=== PATIENT | female | born 1955 | race Caucasian/White ===

== ENCOUNTER 2020-03-21 06:11 | Outpatient (REF) | payer OTHER, SELFPAY ==
[2020-03-21 11:13] LABS: MANUAL DIFF FLAG NO
[2020-03-21 11:22] LABS: Glucose Urine UA NEG (NEG); Leukocyte Esterase Urine 1+ (NEG); Nitrite Urine NEG (NEG); Specific Gravity - Urine 1.025 (1.005-1.025); Urine Blood 3+ (NEG); Urine Ketones NEG (NEG); Urine Protein NEG (NEG-TRACE)
[2020-03-21 11:25] LABS: Appearance Urine CLEAR; Color Urine YELLOW
[2020-03-21 11:26] LABS: Basophils Absolute Auto 0.1 X10*3/uL (0.0-0.2); Basophils Percent Auto 0.9 % (0-2); Eosinophils Absolute Auto 0.6 X10*3/uL (0.0-0.4); Eosinophils Percent Auto 8.3 % (0-4); Hematocrit 42.5 % (37-47); Hemoglobin 13.6 g/dl (12.0-16.0); Imm Gran Abs Auto 0.02 X10*3/uL (0.00-0.03); Imm Gran Pct Auto 0.3 % (0.0-0.4); Lymphocytes Absolute Auto 1.8 X10*3/uL (1.2-4.9); Lymphocytes Percent Auto 26.9 % (20-40); Mean Corpuscular Hemoglobin 29.7 pg (27.0-33.0); Mean Corpuscular Volume 92.8 fL (80-98); Mean Platelet Volume 11.2 fL (9.4-12.3); Monocytes Absolute Auto 0.5 X10*3/uL (0.1-1.2); Monocytes Percent Auto 7.6 % (2-11); Neutrophils Absolute Auto 3.8 X10*3/uL (2.0-8.3); Platelet Count 263 X10*3/uL (160-400); Red Blood Count 4.58 X10*6/uL (4.20-5.50); Red Cell Distribution Width 12.7 % (11.0-16.0); White Blood Count 6.9 X10*3/uL (4.8-10.8)
[2020-03-21 11:51] LABS: Alanine Aminotransferase 20 U/L (0-31); Alkaline Phosphatase 84 U/L (39-117); Anion Gap 13 (12-20); Aspartate Amino Transferase 18 U/L (5-31); Bilirubin Total 0.3 mg/dL (0.0-1.0); Blood Urea Nitrogen 20 mg/dL (9-16); Carbon Dioxide 28 mmol/L (22-29); Chloride 103 mmol/L (96-108); Cholesterol 247 mg/dL; Estimated Glomerular Filt Rate 55; Glucose Fasting 113 mg/dL (60-99); HDL Cholesterol 51 mg/dL; LDL Cholesterol Calculated 155 mg/dl; Potassium 4.2 mmol/l (3.3-5.1); Sodium 140 mmol/L (135-145); Triglycerides 207 mg/dL
[2020-03-21 12:03] LABS: Free T4 (Free Thyroxine) 0.87 ng/dL (0.71-1.85); Thyroid Stimulating Hormone 7.77 uIU/mL (0.32-4.0)
[2020-03-21 12:19] LABS: RBC Urine 0-2 /HPF (0); Renal Epithelial Cells Urine TRACE /LPF; Squamous Epithelial Cell Urine TRACE /LPF
== END 2020-03-21 06:12 | disposition home or self-care (01) ==
LOC: HO.HMGCLDS 06:11
PROVIDERS: PCP Internal Medicine; Visit Provider Internal Medicine
DX: E03.9 Hypothyroidism, unspecified (principal); I10 Essential (primary) hypertension; E78.00 Pure hypercholesterolemia, unspecified
CPT/HCPCS: 36415; 80053; 80061; 81001; 84439; 84443; 85025

== ENCOUNTER 2020-07-08 06:44 | Outpatient (REF) | payer OTHER, SELFPAY ==
[2020-07-08 11:40] LABS: Cholesterol 229 mg/dL; HDL Cholesterol 47 mg/dL; LDL Cholesterol Calculated 134 mg/dl; Triglycerides 244 mg/dL
[2020-07-08 12:08] LABS: Free T4 (Free Thyroxine) 0.91 ng/dL (0.71-1.85)
== END 2020-07-08 06:45 | disposition home or self-care (01) ==
LOC: HO.HMGCLDS 06:44
PROVIDERS: PCP Internal Medicine; Visit Provider Internal Medicine
DX: E78.00 Pure hypercholesterolemia, unspecified (principal); E03.9 Hypothyroidism, unspecified
CPT/HCPCS: 36415; 80061; 84439; 84443

== ENCOUNTER 2020-10-03 09:25 | Outpatient (REF) | payer OTHER, SELFPAY ==
[2020-10-03 12:04] LABS: Free T4 (Free Thyroxine) 1.01 ng/dL (0.71-1.85); Thyroid Stimulating Hormone 1.88 uIU/mL (0.32-4.0)
== END 2020-10-03 09:26 | disposition home or self-care (01) ==
LOC: HO.HMGCLDS 09:25
PROVIDERS: PCP Internal Medicine; Visit Provider Internal Medicine
DX: E03.9 Hypothyroidism, unspecified (principal)
CPT/HCPCS: 36415; 84439; 84443

== ENCOUNTER 2020-10-22 07:34 | Outpatient (REF) | payer OTHER, SELFPAY ==
--- NOTE | ~2020-10-22 | MM_ITS ---
EXAMINATION: MM SCREENING DIGITAL BREAST TOMOSYNTHESIS, BILATERAL CLINICAL INFORMATION: Screening. Asymptomatic. The lifetime risk of breast cancer based on the Tyrer-Cuzick Model is 4%. COMPARISON: Mammography: 10/17/2019, 09/16/2017, 06/19/2016 TECHNIQUE: Digital breast tomosynthesis is performed in both the craniocaudal and mediolateral oblique views along with computer-aided detection (CAD). Synthesized 2D images are generated from the tomosynthesis. Additional exaggerated left CC view is provided. FINDINGS: There are scattered areas of fibroglandular density (ACR BI-RADS breast composition Category b). There are no significant masses, abnormal calcifications, or other abnormalities. Parenchymal pattern is similar to prior studies. No significant changes. MM/MM tomosynthesis screening BI IMPRESSION: No mammographic evidence of malignancy. ASSESSMENT: BI-RADS 1: Negative RECOMMENDATION: Routine annual mammography screening. This patient's information was entered into a reminder system with a target due date for their next mammogram.
== END 2020-10-22 07:35 | disposition home or self-care (01) ==
LOC: HO.MAMMO 07:34
PROVIDERS: PCP Internal Medicine; Visit Provider Internal Medicine
DX: Z12.31 Encounter for screening mammogram for malignant neoplasm of breast (principal)
CPT/HCPCS: 77063; 77067

== ENCOUNTER 2021-10-23 08:02 | Outpatient (REF) | payer OTHER, SELFPAY ==
--- NOTE | ~2021-10-23 | MM_ITS ---
EXAMINATION: MM SCREENING DIGITAL BREAST TOMOSYNTHESIS, BILATERAL CLINICAL INFORMATION: Screening. Asymptomatic. The lifetime risk of breast cancer based on the Tyrer-Cuzick Model is 4%. COMPARISON: Mammography: 10/22/2020, 10/17/2019, 09/16/2017 TECHNIQUE: Digital breast tomosynthesis is performed in both the craniocaudal and mediolateral oblique views along with computer-aided detection (CAD). Synthesized 2D images are generated from the tomosynthesis. FINDINGS: There are scattered areas of fibroglandular density (ACR BI-RADS breast composition Category b). There are no significant masses, abnormal calcifications, or other abnormalities. Parenchymal pattern is similar to prior studies. There is no developing density or architectural abnormality. The axilla and skin contours are unremarkable. No significant changes. MM/MM tomosynthesis screening BI IMPRESSION: No mammographic evidence of malignancy. ASSESSMENT: BI-RADS 1: Negative RECOMMENDATION: Routine annual mammography screening. This patient's information was entered into a reminder system with a target due date for their next mammogram.
== END 2021-10-23 08:03 | disposition home or self-care (01) ==
LOC: HO.MAMMO 08:02
PROVIDERS: PCP Internal Medicine; Visit Provider Internal Medicine
DX: Z12.31 Encounter for screening mammogram for malignant neoplasm of breast (principal)
CPT/HCPCS: 77063; 77067

== ENCOUNTER 2021-11-05 08:24 | Outpatient (REF) | payer OTHER, SELFPAY ==
[2021-11-05 11:10] LABS: MANUAL DIFF FLAG NO
[2021-11-05 11:35] LABS: Basophils Absolute Auto 0.1 X10*3/uL (0.0-0.2); Basophils Percent Auto 0.9 % (0-2); Eosinophils Absolute Auto 0.4 X10*3/uL (0.0-0.4); Eosinophils Percent Auto 6.6 % (0-4); Hemoglobin 13.4 g/dl (12.0-16.0); Imm Gran Abs Auto 0.02 X10*3/uL (0.00-0.03); Imm Gran Pct Auto 0.4 % (0.0-0.4); Lymphocytes Absolute Auto 1.4 X10*3/uL (1.2-4.9); Lymphocytes Percent Auto 25.2 % (20-40); Mean Corpuscular HGB Conc 32.7 g/dl (31.0-35.0); Mean Corpuscular Hemoglobin 29.3 pg (27.0-33.0); Mean Corpuscular Volume 89.5 fL (80.0-98.0); Monocytes Absolute Auto 0.6 X10*3/uL (0.1-1.2); Monocytes Percent Auto 9.8 % (2-11); Neutrophils Absolute Auto 3.2 x10*3/uL (2.0-8.3); Neutrophils Percent Auto 57.1 % (45-73); Platelet Count 250 X10*3/uL (160-400); Red Blood Count 4.58 X10*6/uL (4.20-5.50); Red Cell Distribution Width 12.6 % (11.0-16.0); White Blood Count 5.6 X10*3/uL (4.8-10.8)
[2021-11-05 11:38] LABS: Alanine Aminotransferase 24 U/L (0-31); Alkaline Phosphatase 79 U/L (39-117); Anion Gap 10 (12-20); Aspartate Amino Transferase 20 U/L (5-31); Bilirubin Total 0.5 mg/dL (0.0-1.0); Blood Urea Nitrogen 19 mg/dL (9-16); Calcium 9.1 mg/dL (8.4-10.2); Carbon Dioxide 28 mmol/L (22-29); Chloride 106 mmol/L (96-108); Cholesterol 225 mg/dL; Estimated Glomerular Filt Rate 58; Glucose Random 100 mg/dL (60-115); HDL Cholesterol 42 mg/dL; LDL Cholesterol Calculated 150 mg/dl; Sodium 140 mmol/L (135-145); Total Protein 6.9 g/dL (6.5-8.0); Triglycerides 167 mg/dL
[2021-11-05 12:04] LABS: Free T4 (Free Thyroxine) 1.15 ng/dL (0.71-1.85); Thyroid Stimulating Hormone 1.96 uIU/mL (0.32-4.0)
[2021-11-05 12:20] LABS: Vitamin B12 363 pg/mL (200-900)
[2021-11-07 20:47] LABS: Anti Nuclear Antibody Screen NEGATIVE (NEGATIVE)
== END 2021-11-05 08:25 | disposition home or self-care (01) ==
LOC: HO.HMGCLDS 08:24
PROVIDERS: Visit Provider Internal Medicine
DX: Z00.00 Encounter for general adult medical examination without abnormal findings (principal); M25.50 Pain in unspecified joint
CPT/HCPCS: 36415; 80053; 80061; 82607; 84439; 84443; 85025; 86038; 86039; 86140

== ENCOUNTER 2022-04-16 07:49 | Outpatient (REF) | payer OTHER, SELFPAY ==
[2022-04-16 12:03] LABS: Cholesterol 233 mg/dL; HDL Cholesterol 44 mg/dL; LDL Cholesterol Calculated 146 mg/dl; Triglycerides 217 mg/dL
== END 2022-04-16 07:50 | disposition home or self-care (01) ==
LOC: HO.HMGCLDS 07:49
PROVIDERS: PCP Internal Medicine; Visit Provider Internal Medicine
DX: E78.00 Pure hypercholesterolemia, unspecified (principal)
CPT/HCPCS: 36415; 80061

== ENCOUNTER 2022-07-20 14:24 | Outpatient (REF) | payer OTHER, SELFPAY ==
--- NOTE | ~2022-07-20 | XR_ITS ---
EXAMINATION: XR KNEE, LEFT CLINICAL INFORMATION: Pain COMPARISON: None available. TECHNIQUE: Four views of the left knee. FINDINGS: No acute fracture or dislocation. Moderate narrowing of the lateral tibiofemoral compartment and mild to moderate narrowing of the patellofemoral compartment with tricompartmental osteophytes. Small suprapatellar effusion. XR/XR knee LT 3V IMPRESSION: Moderate osteoarthritis of the left knee. Small suprapatellar effusion.
--- NOTE | ~2022-07-20 | US_ITS ---
EXAMINATION: US VENOUS ULTRASOUND WITH DOPPLER LOWER EXTREMITY, LEFT CLINICAL INFORMATION: Left calf pain COMPARISON: None available. TECHNIQUE: Ultrasound of the deep veins is performed from the hip to the calf with compression sonography and color and pulse Doppler assessment. Spectral analysis with color-flow imaging is performed. FINDINGS: There is normal venous compression and respiratory variation and augmented flow. The visualized common femoral vein, superficial femoral vein, profunda femoral vein, popliteal vein, and the trifurcation region shows no evidence of deep venous thrombosis. There is no significant popliteal fossa cyst. US/US venous duplex LE LT IMPRESSION: No DVT demonstrated in the left lower extremity.
== END 2022-07-20 14:25 | disposition home or self-care (01) ==
LOC: HO.US 14:24
PROVIDERS: PCP Internal Medicine; Visit Provider Internal Medicine
DX: M79.662 Pain in left lower leg (principal); M25.562 Pain in left knee
CPT/HCPCS: 73562; 93971

== ENCOUNTER 2022-08-20 07:06 | Outpatient (REF) | payer OTHER, SELFPAY ==
--- NOTE | ~2022-08-20 | XR_ITS ---
EXAMINATION: XR FOOT, RIGHT CLINICAL INFORMATION: Pain. COMPARISON: None available. TECHNIQUE: AP, lateral, and oblique views of the right foot. FINDINGS: Bony alignment and mineralization are normal. No fracture, dislocation or right ankle joint effusion is seen. Boehler's angle is normal. There is mild bunion formation of the first metatarsal head. No focal soft tissue swelling, gas or foreign body is seen. XR/XR foot LT min 3V IMPRESSION: 1. No fracture, dislocation or right ankle joint effusion is seen. 2. There is mild bunion formation. EXAMINATION: XR FOOT, LEFT CLINICAL INFORMATION: Pain. COMPARISON: None available. TECHNIQUE: AP, lateral, and oblique views of the left foot. FINDINGS: Bony mineralization is normal. There is a metatarsus adductus and hallux valgus configuration. There is moderate bunion formation of the first metatarsal head. There is mild osteoarthritic change of the first metatarsophalangeal joint. There is degenerative change of the second tarsometatarsal joint. No fracture, dislocation or left ankle joint effusion is seen. Boehler's angle is normal. There is no calcaneal spur. No focal soft tissue swelling, gas or foreign body is seen. IMPRESSION: 1. There is multi-level degenerative change of the left foot, as detailed. 2. No fracture, dislocation or left ankle joint effusion is seen. 3. There is moderate bunion formation of the left first metatarsal head.
--- NOTE | ~2022-08-20 | XR_ITS ---
EXAMINATION: XR FOOT, RIGHT CLINICAL INFORMATION: Pain. COMPARISON: None available. TECHNIQUE: AP, lateral, and oblique views of the right foot. FINDINGS: Bony alignment and mineralization are normal. No fracture, dislocation or right ankle joint effusion is seen. Boehler's angle is normal. There is mild bunion formation of the first metatarsal head. No focal soft tissue swelling, gas or foreign body is seen. XR/XR foot RT min 3V IMPRESSION: 1. No fracture, dislocation or right ankle joint effusion is seen. 2. There is mild bunion formation. EXAMINATION: XR FOOT, LEFT CLINICAL INFORMATION: Pain. COMPARISON: None available. TECHNIQUE: AP, lateral, and oblique views of the left foot. FINDINGS: Bony mineralization is normal. There is a metatarsus adductus and hallux valgus configuration. There is moderate bunion formation of the first metatarsal head. There is mild osteoarthritic change of the first metatarsophalangeal joint. There is degenerative change of the second tarsometatarsal joint. No fracture, dislocation or left ankle joint effusion is seen. Boehler's angle is normal. There is no calcaneal spur. No focal soft tissue swelling, gas or foreign body is seen. IMPRESSION: 1. There is multi-level degenerative change of the left foot, as detailed. 2. No fracture, dislocation or left ankle joint effusion is seen. 3. There is moderate bunion formation of the left first metatarsal head.
[2022-08-20 07:39] LABS: MANUAL DIFF FLAG NO
[2022-08-20 08:27] LABS: Basophils Absolute Auto 0.1 X10*3/uL (0.0-0.2); Basophils Percent Auto 1.4 % (0-2); Eosinophils Absolute Auto 0.5 X10*3/uL (0.0-0.4); Eosinophils Percent Auto 7.6 % (0-4); Hematocrit 42.8 % (37.0-47.0); Imm Gran Abs Auto 0.02 X10*3/uL (0.00-0.03); Imm Gran Pct Auto 0.3 % (0.0-0.4); Lymphocytes Absolute Auto 1.7 X10*3/uL (1.2-4.9); Lymphocytes Percent Auto 25.6 % (20-40); Mean Corpuscular HGB Conc 32.7 g/dl (31.0-35.0); Mean Corpuscular Hemoglobin 29.6 pg (27.0-33.0); Mean Corpuscular Volume 90.5 fL (80.0-98.0); Mean Platelet Volume 10.8 fL (9.4-12.3); Monocytes Absolute Auto 0.6 X10*3/uL (0.1-1.2); Monocytes Percent Auto 8.5 % (2-11); Neutrophils Absolute Auto 3.7 x10*3/uL (2.0-8.3); Neutrophils Percent Auto 56.6 % (45-73); Platelet Count 265 X10*3/uL (160-400); Red Blood Count 4.73 X10*6/uL (4.20-5.50); White Blood Count 6.5 X10*3/uL (4.8-10.8)
[2022-08-20 09:11] LABS: Alanine Aminotransferase 24 U/L (0-31); Albumin Level 4.1 g/dL (3.5-5.0); Alkaline Phosphatase 87 U/L (39-117); Anion Gap 10 (12-20); Aspartate Amino Transferase 20 U/L (5-31); Bilirubin Total 0.4 mg/dL (0.0-1.0); Blood Urea Nitrogen 21 mg/dL (9-16); Calcium 9.5 mg/dL (8.4-10.2); Carbon Dioxide 28 mmol/L (22-29); Chloride 106 mmol/L (96-108); Cholesterol 251 mg/dL; Estimated Glomerular Filt Rate 56; Glucose Fasting 116 mg/dL (60-99); HDL Cholesterol 42 mg/dL; LDL Cholesterol Calculated 170 mg/dl; Potassium 4.4 mmol/L (3.3-5.1); Sodium 140 mmol/L (135-145); Total Protein 6.9 g/dL (6.5-8.0); Triglycerides 196 mg/dL
[2022-08-20 09:31] LABS: Free T4 (Free Thyroxine) 1.04 ng/dL (0.71-1.85); Thyroid Stimulating Hormone 1.86 uIU/mL (0.32-4.0)
== END 2022-08-20 07:07 | disposition home or self-care (01) ==
LOC: HO.LAB 07:06
PROVIDERS: PCP Internal Medicine; Visit Provider Internal Medicine
DX: M79.672 Pain in left foot (principal); E78.00 Pure hypercholesterolemia, unspecified; E03.9 Hypothyroidism, unspecified; M21.612 Bunion of left foot; M21.611 Bunion of right foot
CPT/HCPCS: 36415; 73630; 80053; 80061; 84439; 84443; 85025

== ENCOUNTER 2022-10-29 07:24 | Outpatient (REF) | payer OTHER, SELFPAY ==
--- NOTE | ~2022-10-29 | MM_ITS ---
EXAMINATION: MM SCREENING DIGITAL BREAST TOMOSYNTHESIS, BILATERAL CLINICAL INFORMATION: Screening. Asymptomatic. The lifetime risk of breast cancer based on the Tyrer-Cuzick Model is 3.2%. COMPARISON: Mammography: This study is compared with prior exams dating back to 2018. TECHNIQUE: Digital breast tomosynthesis is performed in both the craniocaudal and mediolateral oblique views along with computer-aided detection (CAD). Synthesized 2D images are generated from the tomosynthesis. FINDINGS: There are scattered areas of fibroglandular density (ACR BI-RADS breast composition Category b). There are no significant masses, abnormal calcifications, or other abnormalities. Few, benign calcifications are present in each breast. MM/MM tomosynthesis screening BI IMPRESSION: No mammographic evidence of malignancy. ASSESSMENT: BI-RADS BI-RADS 2 - Benign Findings RECOMMENDATION: Routine annual mammography screening. 1 year F/U This examination should not preclude the clinical evaluation of a suspicious palpable abnormality. This patient's information was entered into a reminder system with a target due date for their next mammogram.
== END 2022-10-29 07:25 | disposition home or self-care (01) ==
LOC: HO.MAMMO 07:24
PROVIDERS: PCP Internal Medicine; Visit Provider Internal Medicine
DX: Z12.31 Encounter for screening mammogram for malignant neoplasm of breast (principal)
CPT/HCPCS: 77063; 77067

== ENCOUNTER → 2022-10-29 07:45 | Outpatient (BNV) | payer OTHER, SELFPAY | PROVIDERS: PCP Internal Medicine; Visit Provider Radiology Diagnostic Radiology | DX: Z12.31 Encounter for screening mammogram for malignant neoplasm of breast (principal) | CPT/HCPCS: 77063; 77067 ==

== ENCOUNTER 2023-02-25 06:49 | Outpatient (REF) | payer OTHER, SELFPAY ==
[2023-02-25 11:43] LABS: Cholesterol 261 mg/dL (<200); HDL Cholesterol 45 mg/dL (>40); LDL Cholesterol Calculated 165 mg/dL (<100); Triglycerides 256 mg/dL (<150)
== END 2023-02-25 06:50 | disposition home or self-care (01) ==
LOC: HO.HMGCLDS 06:49
PROVIDERS: PCP Internal Medicine; Visit Provider Internal Medicine
DX: E78.00 Pure hypercholesterolemia, unspecified (principal)
CPT/HCPCS: 36415; 80061

== ENCOUNTER 2023-11-11 07:27 | Outpatient (REF) | payer OTHER, SELFPAY ==
--- NOTE | ~2023-11-11 | MM_ITS ---
EXAMINATION: MM SCREENING DIGITAL BREAST TOMOSYNTHESIS, BILATERAL CLINICAL INFORMATION: Screening. Asymptomatic. COMPARISON: Mammography: This study is compared with prior exams dating back to 2019. TECHNIQUE: Digital breast tomosynthesis is performed in both the craniocaudal and mediolateral oblique views along with computer-aided detection (CAD). Synthesized 2D images are generated from the tomosynthesis. FINDINGS: There are scattered areas of fibroglandular density (ACR BI-RADS breast composition Category b). There are no significant masses, abnormal calcifications, or other abnormalities. MM/MM tomosynthesis screening BI IMPRESSION: No mammographic evidence of malignancy. ASSESSMENT: BI-RADS BI-RADS 1 - Negative RECOMMENDATION: Routine annual mammography screening. 1 year F/U This examination should not preclude the clinical evaluation of a suspicious palpable abnormality. This patient's information was entered into a reminder system with a target due date for their next mammogram. Electronically signed by: Rody Leal MD 12/06/2023 02:31 AM EDT
== END 2023-11-11 07:28 | disposition home or self-care (01) ==
LOC: HO.MAMMO 07:27
PROVIDERS: PCP Internal Medicine; Visit Provider Internal Medicine
DX: Z12.31 Encounter for screening mammogram for malignant neoplasm of breast (principal)
CPT/HCPCS: 77063; 77067

== ENCOUNTER → 2023-11-11 08:00 | Outpatient (BNV) | payer OTHER, SELFPAY | PROVIDERS: PCP Internal Medicine; Visit Provider Radiology Diagnostic Radiology | DX: Z12.31 Encounter for screening mammogram for malignant neoplasm of breast (principal) | CPT/HCPCS: 77063; 77067 ==

== ENCOUNTER 2024-07-20 07:40 | Outpatient (REF) | payer OTHER, SELFPAY ==
--- OUTSIDE RECORDS SUMMARY | 2024-07-20 07:43 | XMS_ITS ---
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 . . patient recieved cortisone injection and is disabled until 11/09/22 11/04/2022 Active Lisinopril 10 MG 1 tablet Orally Once a day for 30 day(s) Active Metoprolol Succinate 50 MG 1 capsule Ora lly Once a day for 30 day(s) Active Levothyroxine Sodium 88 MCG 1 tablet in the morning on an empty stomach Orally Once a day for 30 day(s) Active Aspirin Active Nabumetone 750 MG 1 tablet Orally ONCE A DAY WITH FOOD for 30 day(s) Active Social History Tobacco Use: Social History Observation Description Date Details (start date - stop date) Never Smoker NA - NA Tobacco Use/Smoking Question Answer Notes Are you a: nonsmoker Additional Findings: Tobacco Non-User Current no n-smoker Alcohol Screen Question Answer Notes Did you have a drink containing alcohol in the p ast year? No Points 0 Interpretation Negative Tobacco use other than smoking: Question Answer Notes Are you an other tobacco user? No Vital Signs Height 4 ft 11 in in 02/24/2023 Weight 140 lbs 02/24/2023 BMI 28.27 kg/m2 02/24/2023 Encounters Encounter Location Date Provider Diagnosis [facility] [address] [place] [address] 02/24/2023 Randell Oquendo Pain in left foot M79.672 ; Primary osteoarthritis, left ankle and foot M19.072 and Hallux valgus (acquired), left foot M20.12 Assessments Encounter Date Diagnosis (ICD Code) Assessment Notes Treatment Notes Treatment Clinical Notes Section Notes 02/24/2023 Pain in left foot (ICD-10 - M79.672) 02/24/2023 Primary osteoarthritis, left ankle and foot (ICD-10 - M19.072) 02/24/2023 Hallux valgus (acquired), left foot (ICD-10 - M20.12) Plan Of Treatment Medication Medication Name Sig Start Date Stop Date Notes Nabumetone 750 MG 1 tablet Orally ONCE A DAY WITH FOOD for 30 day(s) Next Appt Details Follow Up: prn, Reason: Progress Notes * Polly VICTORIA CDOB:[birth year] (67 yo F)Acc No.[id number]:02/24/2023 Progress Note Patient:?Polly Victoria C Provider:?Randell Oquenod DPM :1955???Age:67 Y???Sex:Female D ate:02/24/2023 Address:[address] [place], [place] [id number] Pcp:Dejan Petit MD Subjective: * Chief Complaints: * ??? * HPI: ???Foot Pain:?Nature:?swelling, aching.?Location?Top, Midfoot, Rearfoot, Left .?Duration:?several months.?Onset/Cause:?unknown, denies trauma.?Course:?improved, at __25_ %.?Aggrevated:?any pressure, standing, walking.?Treatments:?rest, elevation, change in shoes, cortisone injection therapy--did not help; nabumetone qod has helped.?Quality/Severity?6, scale 1-10.? * ROS:?General/Constitutional:?Nausea?denies, denies.?Vomiting?denies, denies.?Hunger Thirst?denies, denies.?Loss appetite?denies, denies.?Chills?denies, denies.?Fatigue?denies, denies.?Fever?denies, denies.?Night Sweats denies, denies.?Unexplained weight loss?denies, denies.?Unexplained weight gain?denies.?Ophthalmologic:?Blurred vision?denies.?Red eye?denies.?HEENTM:?Dentures?denies, denies.?Dizziness?denies, denies.?Glasses/contacts?admits, denies.?Retinopathy?denies, denies.?Blurred/double vision?denies, denies.?TMJ?denies, denies.?Discharge/drainage?denies, denies.?Implants?denies, denies.?Sore throat?denies.?Dental implants?denies.?Hard of hearing ?denies, denies.?Difficulty chewing/swallowing/speaking?denies, denies.?Nose bleeds?denies, denies.?Sore mouth?denies, denies.?Swollen glands?denies.?Respiratory:?On Oxygen?denies, denies.?Pneumonia/pleurisy?denies, denies.?Bronchitis?denies, denies.?Emphysema?denies, denies.?Coughing?denies, denies.?Cough blood?denies, denies.?Shortness of breath?denies, denies.?Wheezing?denies, denies.?Cardiovascular:?Pacemaker?denies, denies.?MVP?denies, denies.?WPW?denies, denies.?CHF?denies, denies.?Heart attack?denies, denies.?Septal defect?denies, denies.?Rapid beat?denies, denies.?Chest pain ?denies, denies.?Atrial Fib.?denies, denies.?Murmur/Palpitations?denies, denies.?Gastrointestinal:?Hemorrhoids?denies, denies.?Stomach/Abdominal pain?denies, denies.?Dark blood stool?denies, denies.?Irritable bowel ?denies, denies.?Constipation?denies, denies.?Diarrhea?denies, denies.?Vomiting?denies.?Hematology:?Swelling?denies, denies.?Clots?denies.?Varicose Veins?denies.?Bruising?denies, denies.?Bleeding problem?denies, denies.?Genitourinary:?Blood urine?denies, denies.?Frequent/Painfu/urination/bladder control?denies, denies.?Kidney stones?denies, denies.?Infection (UTI)?denies, denies.?Nephropathy?denies, denies.?sex trans dis (STD)?denies.?Prostate?denies.?Musculoskeletal:?Hammertoes?denies, denies.?Bunions?admits, denies.?Scoliosis/kyphosis?denies.?Back Pain?admits.?Muscle Cramps/ Resting?denies.?Muscle cramps / walking?denies, denies.?Generalized aches and pains?admits, denies.?Weakness?denies, denies.?Integ.:?Batista?denies, denies.?Scars?denies, denies.?Corns/calluses?denies, denies.?Ingrown nails?denies, denies.?Painful nails?denies, denies.?Open Sores?denies.?Rashes?denies, denies.?Neurologic:?Difficulty sleeping?denies, denies.?Bipolar?denies.?Brain disorder?denies, denies.?Numbness?admits.?Balance trouble?denies, denies.?Confusion?denies, denies.?Fainting/blackouts?denies, denies.?Headache?denies.?Tingling?admits.?Tremors?denies, denies.? * Medical History:? * Surgical History:?right knee arthroscopy- anesthesia causing blood pressure to go low + [id number] * Hospitalization/Major Diagno stic Procedure:?Back Joint Injury- work related- no surgery -physical Therapy every other month 2014 * Family History:?Mother: dece ased, kidney/liver disease, diagnosed with Family history of arthritis, Unspecified essential hypertension, Other specified conditions influencing health status.?Father: , heart attack, diagnosed with Unspecified heart disease.? * Social History:?Drugs/Alcohol:?Drugs?Have you used drugs other than those for medical reasons in the past 12 months??No ?Alcohol Screen?Did you have a drink containing alcohol in the past year??No ?Points?0 ?Interpretation?Negative ???Miscellaneous:?Caffeine: yes, frequency:, 3-5 cups per day. ?Children: yes, 1. ?Exercise: yes, walking, bike riding. ?Marital status: . 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 * Medications:?TakingAspirin L evothyroxine Sodium 88 MCG Tablet 1 tablet in the morning on an empty stomach Orally Once a dayMetoprolol Succinate 50 MG Capsule ER 24 Hour Sprinkle 1 capsule Orally Once a dayLisinopril 10 MG Tablet 1 tablet Orally Once a dayWork Note . . . . patient recieved cortisone injection and is disabled until 11/09/22Nabumetone 750 MG Tablet 1 tablet Orally ONCE A DAY WITH FOODMedication List reviewed and reconciled with the patientTaking Aspirin Taking Levothyroxine Sodium 88 MCG Tablet 1 tablet in the morning on an empty stomach Orally Once a dayTaking Metoprolol Succinate 50 MG Capsule ER 24 Hour Sprinkle 1 capsule Orally Once a dayTaking Lisinopril 10 MG Tablet 1 tablet Orally Once a dayTaking Work Note . . . . patient recieved cortisone injection and is disabled until 11/09/22Taking Nabumetone 750 MG Tablet 1 tablet Orally ONCE A DAY WITH FOODMedication List reviewed and reconciled with the patient * Allergies:?Penicillin: rashy es[Allergies Verified] Objective: * Vitals:?Ht: 4 ft 11 in, Wt:1 40, BMI:28.27, Shoe size:4.5-5. * Examination: ???General Examination: ?GENERAL APPEARANCE:?pleasant, alert, well nourished, well developed, well hydrated, with good attention to hygene/body habitus, and in no acute distress.?ORIENTED:?person,place, and time.?Neurological: ?SENSORY:? Neurological exam demonstrates pop dorsum left midfoot --anjum 2nd mt-cun and mild pop left first mtpj hav; no pop of ankle.?TINEL'S COMPRESSION:?Negative tarsal tunnel, vonda pedis, and medial calcaneal nerves B/L.?BABINSKI REFLEX:?absent.?Neuroma Pain: ?PALPATION:?No interspace pain noted on palpation.?Vascular: ?DP PULSES:?2/, B/L.?PT PULSES:?2/4, B/L.?CAPILLARY FILL TIME:?3 secs. per digit, B/L.?SKIN TEMPERTURE GRADIENT OF THE LOWER EXTERMITIES:?warm to cool, proximal to distal, B/L.?HAIR GROWTH/TEXTURE/ELASTICITY/TURGOR:?normal, B/L.?PIGMENTATION:?normal, B/L.?EDEMA:? /4, Left, Ankle(s), Leg(s), foot.?TELANGECTASIA:?absent.?VARICOSITIES:?absent.?Dermatologic: ?SKIN FINDINGS:?Skin exam reveals normal texture, elasticity, and tugor. There are no masses. The interspaces are clear, B/L .?Orthopedic: ?MUSCLE STRENGTH:?5/5 all groups in a symmetrical fashion , B/L.?GAIT ABNORMALITY:?pronated, abducted, B/L.?BUNION:? Medially prominent 1st MPJ, LEFT, Lateral tracking 1st MPJ incompletely reducible.? Assessment: * Assessment: 1.?Pain in left foot - M79.6 72 (Primary)?2.?Primary osteoarthritis, left ankle and foot - M19.072?3.?Hallux valgus (acquired), left foot - M20.12? Plan: * Treatment: * Procedure Codes:? * Preventive Medicine:? ??Counseling:?Discussion:?-13: Office or other outpatient visit for the evaluation and management of an established patient, which required a medically appropriate history and/or examination and LOW level of DECISION MAKING for: 1 STABLE ACUTE UNCOMPLICATED PROBLEM, 2 OR MORE MINOR PROBLEMS, OR 1 STABLE CHRONIC PROBLEM, THAT POSE(S) A LOW RISK FOR MORBIDITY/MORTALITY. The visit on the day of the encounter encompassed interpreting the data and educating the patient as to the nature of their condition, treatment options available according to their individual PMH, meds, allergies, and overall health/living conditions, as well as any potential risks or complications that may occur from a failure to adhere to, and participate in, the recommended course of therapy. The discussion included a complete verbal, and/or written explanation of the examination results, any x-rays taken, the proposed diagnosis, and outline of the treatment plan. A schedule for future care needs was also explained. The patient verbalized an understanding of the instructions at this time and agreed to be an active participant in their treatment. If the patient should think of any questions or concerns after the visit, I have encouraged the patient to call the office--pt to conitnue with ice, topical and oral nsaid and altered lacing to shoes; pt to consider sx tx in future if she cotninues to have pain into snf.? * Follow Up:?prn * Images: * Sign off status: Completed true * Provider:?Randell Oquendo DPM Date:? 023 Generated for Printi ng/Faxing/eTransmitting on:?07/20/2024 07:43 AM EDT History and Physical Notes * HPI (History of Present Illness) Category Sub-Category Detail Notes Category Not es Foot Pain Aggrevated: any pressure, standing, walk ing Onset/Cause: unknown, denies abby ohara Course: improved, at __25_ % Duration: several months Nature: swelling, aching Treatments: rest, elevation, sandra nge in shoes, cortisone injection therapy--did not help; nabumetone qod has helped Quality/Severity 6, scale 1-10 Location Top, Midfoot, Rearfo ot, Left Examination Category Sub-Category Detail Notes Category Not es Neuroma Pain PALPATION: No interspace pain noted on palpation Neurological SENSORY: Neurological exa m demonstrates pop dorsum left midfoot --anjum 2nd mt-cun and mild pop left first mtpj hav; no pop of ankle BABINSKI REFLEX: absent TINEL'S COMPRESSION: Negative tarsal heather guero, vonda pedis, and medial calcaneal nerves B/L Dermatologic SKIN FINDINGS: Skin exam reveal s normal texture, elasticity, and tugor. There are no masses. The interspaces are clear, B/L Orthopedic GAIT ABNORMALITY: pronated, abducted, B/L BUNION: Medially prominent 1 st MPJ, LEFT, Lateral tracking 1st MPJ incompletely reducible MUSCLE STRENGTH: 5/5 all groups in a symmetrical fashion , B/L General Examination GENERAL APPEARANCE: pleasant , alert, well nourished, well developed, well hydrated, with good attention to hygene/body habitus, and in no acute distress ORIENTED: person,place, and ti me Vascular DP PULSES (B): 2/4, B/L PT PULSES (B): 2/4, B/L CAPILLARY FILL TIME: 3 secs. per digit, B/L TEMPERTURE GRADIENT (C): warm to cool, p roximal to distal, B/L TROPHIC CONDITION-TEXTURE/ELASTICITY/TURGOR/HAIR GROWTH (B): normal, B/L EDEMA (C): 1/4, Left, Ankle(s), Leg(s), foot TELANGECTASIA: absent VARICOSITIES: absent PIGMENTATION: normal, B/L
--- OUTSIDE RECORDS SUMMARY | 2024-07-20 07:43 | XMS_ITS | Data Portability ---
Author Organization [facility] Address [address] [place] [address] Assessment No assessment recorded. Plan of Treatment Reminders Order Date Submit Date Provider Last Modified By Organization Details Last Modified Time Details Appointments None recorded. Lab CMP, serum or plasma 2018 JEFF Not available 9 08:37:02 lipid panel, blood 2018 JEFF Not available 9 08:37:02 CBC 2018 019 JEFF Not available 9 08:37:02 TSH + free T4, serum 2018 019 JEFF Not available 9 08:37:02 Referral colonoscopy referral 2018 denisha Virgen Jr, MD, [address] [place] [address] [place], [address], 9 09:45:47 Procedures None recorded. Surgeries None recorded. Imaging None recorded. Medication Orders None recorded. Patient TargetsNo targets recorded. Patient Instructions Encounter Date Encounter Id Patient Instructions Last Modified By Organization Details Last Modified Time 2018 [id number] Work on weight loss antonella Not available 2018 15:44:15 Reason for Referral Colonoscopy Referral for Scr eening procedure Referring Physician: Nicole Zepeda, Internal Medicine, Encounter Date: 2018 Results Created Date Observation Date Name Description Value Unit Range Abnormal Flag Note LastModifiedBy Organization Detail LastModifiedTime Result Notes None recorded. Problems Name Problem SNOMED Code Status Onset Date Resolution Date Notes Provider Name and Address Organization Details Recorded Time Hypertensive disorder 93408344 Active 2018 [facility] 9 08:03:20 Hypothyroidism 21491421 Active 2018 Rosalinda Louann [facility] 9 08:03:31 Hypercholestero lemia 95551821 Active 2018 [place] Louann [facility] 9 08:03:40 Problem Notes None recorded. Procedures Surgical History Date Name Laterality Status Provider Name and Address Organization Details Recorded Time 6 Colonoscopy completed [facility] 06/27/2018 08:05:39 arthroscopy of knee completed [facility] 06/27/2018 08:09:04 Imaging Results None recorded. Procedure Notes None recorded. Medical Equipment None Reported. Allergies Allergen ID Allergen Name Allergen Category Reaction Reaction Severity Criticality Documentation Date Start Date Code Code System Note Provider Name and Address Organization Details Recorded Time 2913 Product containin g penicilli n (product) medicatio n Not available Not available Not available 06/27/2018 67459 8001 SNOMED [place] [facility] 9 08:05:57 Medications Name Sig Start Date Stop Date Status Note LastModified by Organization Details LastModified Time metoprolol succinate ER 50 mg tablet,extended release 24 hr TAKE 1 TABLET BY MOUTH EVERY DAY 2018 active Not Available Not Available Not Avai lable levothyroxine 50 mcg tablet TAKE 1 TABLET BY MOUTH EVERY DAY active Not Available Not Available No t Available lisinopril 10 mg tablet TAKE 1 TABLET BY MOUTH EVERY DAY active Not Available Not Available No t Available Vitals Date Recorded Body height Body mass index (BMI) Body weight Heart rate Oxygen saturation Oxygen saturation in Arterial blood by Pulse oximetry Systolic blood pressure Diastolic blood pressure Provider Name and Address Organization Details Last Updated DateTime 9 137.16 cm 33.8 kg/m2 44607.0 1 g 88 /min 96 % 96 % 140 mm[Hg] 84 mm[Hg] [facility] 9 15:01:01 Date Recorded Systolic blood pressure Diastolic blood pressure Provider Name and Address Organization Details Last Updated DateTime 2018 132 mm[Hg] 80 mm[Hg] Nicole Zepeda NP, [address] [place], [address], [facility] 2018 15:23:50 Social History Question Answer Notes LastModified by Organizat ion Details LastModified Time Tobacco Smoking Status Never Smoker [facility]2018 08:08:43 What Was The Date Of Your Most Recent Tobacco Screening? 2018 Information n ot available 11/03/2018 Sex: Unknown Functional Status None recorded. Mental Status None recorded. Family History Relationship Description Onset Age of this Age Resolved Age Notes LastModified by Organization Details LastModified Time Father Coronary arterioscler osis tbalicki Not available 2018 08:07:28 Brother Coronary arterioscler osis tbalicki Not available 2018 08:07:42 Mother Hyperlipidem ia tbalicki Not available 2018 08:08:03 Mother Hypertensive disorder tbalicki Not available 2018 08:08:16 Sister Hyperlipidem ia tbalicki Not available 2018 08:08:03 Sister Polyp of colon eskawski Not available 2018 15:06:46 Medical History No medical history recorded. Gynecological HistoryNo gynecological history recorded. Obstetrics History GPAL:G 0 P 0 0 0 0 Past Encounters Encounter ID Performer Location Encounter Start Date Encounter Closed Date Diagnosis/Indication Diagnosis SNOMED-CT Code Diagnosis ICD10 Code Diagnosis Note [id number] Nicole Zepeda NP, S [facility] [address] [facility] [address] 2018 14:41:37 2018 15:56:03 Hypercholesterolemia 73381035 E78.00 Hypertensive disorder 38 948725 I10 Hypothyroidism 30991714 E03.9 Screening procedure 2012 5006 Z13.9 Health Concerns Section Related Observation LastModified by Organization Detai ls LastModified Time None Recorded Concern Status LastModified by Organization Details LastModified Time None Recorded Advance Directives Directive None Recorded Payers Encounter Date Sequence Insurance Name Policy Number Policy Burt Covered Member ID Burt Member ID Guarantor Name [address] [place] [id number] Polly Combs [id number] Polly Combs Notes Date Note Type Note Provider Name a nd Address Organization Details Recorded Time 2018 text/html Routine new pt appt known to this provider from previous office 3 years ago hurt back at work-lots P.T., 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 Eats at home, limited take out Nicole Zepeda NP, [address] [facility], [place], [address], [facility] 2018 15:45:11 OBGyn Episode No OBEpisode recorded.
--- OUTSIDE RECORDS SUMMARY | 2024-07-20 07:43 | XMS_ITS ---
Author Organization [facility] Address [address] [place] [address] Care Team Providers Care Police Superintendent Name Role Phone Dejan Petit MD Primary Care Provider Randell Palmer [facility] [phone] Encounters Encounter Location Date Provider Diagnosis [facility] [address] [place] [address] 02/22/2023 Randell Oquendo Plan Of Treatment No Information Progress Notes * Polly VICTORIA CDOB:[birth year] (68 yo F)Acc No.[id number]:02/22/2023 Progress Note Patient:Analilia QUINTANAycsherrell Duarte Provider:Gloria Oquendo DPM :1955???Age:67 Y???Sex:Female D ate:02/22/2023 Address:[address] [place], [place] [address] Pcp:Dejan Petit MD Subjective: * Chief Complaints: * ??? * Medical History:? Objective: * Vitals:? Assessment: Plan: * Treatment: * Images: * The named appointment provid er may or may not be the originator of this progress note, and it is not deemed complete until electronically signed by the appointment provider. Sign off status: Pending * Provider:Gloria Oquendo DPM Date:? 023 Generated for Printi ng/Faxing/eTransmitting on:?07/20/2024 07:42 AM EDT
--- OUTSIDE RECORDS SUMMARY | 2024-07-20 07:43 | XMS_ITS | Patient Health Record ---
Author Organization [facility] Address [address] [place] [address] Care Team Providers Care Quality Assurance Supervisor Chassis Name Role Phone Marisabel BAUGH, Dejan Primary Care Provider Randell Palmer Unavailable [phone] Allergies Allergen (clinical drug ingredient) Drug/Non Drug Allergy documented on EMR Reaction Allergy Type Onset Date Status Penicillin rash Drug Allergy Active Reason For Referral No Information Medications Medication SIG (Take, Route, Frequency, Duration) Notes Start Date End Date Status Work Note . . . patient recieved cortisone injection and is disabled until 11/09/22 11/04/2022 Active Lisinopril 10 MG 1 tablet Orally Once a day for 30 day(s) Active Nabumetone 750 MG 1 tablet Orally ONCE A DAY WITH FOOD for 30 day(s) Active Metoprolol Succinate 50 MG 1 capsule Ora lly Once a day for 30 day(s) Active Levothyroxine Sodium 88 MCG 1 tablet in the morning on an empty stomach Orally Once a day for 30 day(s) Active Aspirin Active Social History Tobacco Use: Social History [...] Are you an other tobacco user? No Problems Problem Type SNOMED Code ICD Code Onset Dates Problem Status W/U Status Risk Notes Problem Acquired hallux valgus (92276873) Hallux valgus (acquired), left foot (M20.12) Active confirmed Problem Localized, primary osteoarthritis of the ankle and/or foot (647386842) Primary osteoarthrit is, left ankle and foot (M19.072) Active confirmed Plan Of Treatment Pending Test Test Name Order Date X ray : Ankle, left 3V 11/04/2022, J0702- INJECT or DRAIN, JOINT/BUR SA 11/04/2022 Insurance Providers Payer Name Payer Address Payer Phone Subscriber Number Group Number Insured Name Patient Relationship to Insured Coverage Start Date Coverage End Date [facility] [address] [place] [address] [id number] Polly Vidal Self - patient is the insured Medical (General) History Medical History History ICD Code Arthritis Back,Hip,and Knee pain covid-19 High blood pressure thyroid Measles Mumps Chicken pox Surgical History Surgery Date(Month/Year) right knee arthroscopy- anes thesia causing blood pressure to go low + vomitting 2006 Hospitalization History Reason Date(Month/Year) Back Joint Injury- work rela tania- no surgery -physical Therapy every other month 2014
--- OUTSIDE RECORDS SUMMARY | 2024-07-20 07:44 | XMS_ITS ---
Author Organization [facility] Address [address] [place] [address] Care Team Providers Care Photoengraving Proofer Apprentice Name Role Phone Dejan Petit MD Primary Care Provider Randell Palmer [phone] REASON FOR VISIT covid protocol Encounters Encounter Location Date Provider Diagnosis [facility] [address] [place] [address] 02/23/2023 Randell Oquendo Plan Of Treatment No Information Progress Notes * Polly VICTORIA CDOB:[birth year] (67 yo F)Acc No.[id number]:02/23/2023 Patient:?Polly Victoria :1955???Age:67 Y???Sex:Female Address:[address] [place] [address] * true * Date:? Generated for Printi ng/Fanatalieg/eTransmitting on:?07/20/2024 07:43 AM EDT
[2024-07-20 10:07] LABS: MANUAL DIFF FLAG NO
[2024-07-20 10:17] LABS: Basophils Absolute Auto 0.1 X10*3/uL (0.0-0.2); Basophils Percent Auto 0.9 % (0-2); Eosinophils Absolute Auto 0.4 X10*3/uL (0.0-0.4); Eosinophils Percent Auto 7.7 % (0-4); Hematocrit 41.5 % (37.0-47.0); Imm Gran Abs Auto 0.01 X10*3/uL (0.00-0.03); Imm Gran Pct Auto 0.2 % (0.0-0.4); Lymphocytes Absolute Auto 1.4 X10*3/uL (1.2-4.9); Mean Corpuscular HGB Conc 33.7 g/dl (31.0-35.0); Mean Corpuscular Hemoglobin 29.9 pg (27.0-33.0); Mean Corpuscular Volume 88.7 fL (80.0-98.0); Mean Platelet Volume 10.5 fL (9.4-12.3); Monocytes Absolute Auto 0.4 X10*3/uL (0.1-1.2); Neutrophils Absolute Auto 3.2 x10*3/uL (2.0-8.3); Neutrophils Percent Auto 58.2 % (45-73); Platelet Count 261 X10*3/uL (160-400); Red Blood Count 4.68 X10*6/uL (4.20-5.50); White Blood Count 5.5 X10*3/uL (4.8-10.8)
[2024-07-20 10:36] LABS: Alanine Aminotransferase 22 U/L (0-31); Anion Gap 10 (12-20); Aspartate Amino Transferase 28 U/L (5-31); Bilirubin Total 0.5 mg/dL (0.0-1.0); Blood Urea Nitrogen 20 mg/dL (9-16); Carbon Dioxide 27 mmol/L (22-29); Chloride 107 mmol/L (96-108); Cholesterol 252 mg/dL (<200); Estimated Glomerular Filt Rate > 60; Glucose Fasting 124 mg/dL (60-99); HDL Cholesterol 43 mg/dL (>40); LDL Cholesterol Calculated 162 mg/dL (<100); Sodium 140 mmol/L (135-145); Total Protein 6.7 g/dL (6.5-8.0); Triglycerides 238 mg/dL (<150)
[2024-07-20 10:51] LABS: Alkaline Phosphatase 92 U/L (39-117); Free T4 (Free Thyroxine) 1.14 ng/dL (0.71-1.85); Thyroid Stimulating Hormone 1.72 uIU/mL (0.32-4.0); Vitamin D 25-OH Total 23.5 ng/mL (>30)
== END 2024-07-20 07:41 | disposition home or self-care (01) ==
LOC: HO.HMGCLDS 07:40
PROVIDERS: PCP Internal Medicine; Visit Provider Internal Medicine
DX: I10 Essential (primary) hypertension (principal); E03.9 Hypothyroidism, unspecified; E78.00 Pure hypercholesterolemia, unspecified
CPT/HCPCS: 36415; 80053; 80061; 82306; 84439; 84443; 85025

== ENCOUNTER 2024-07-24 13:20 | Outpatient (AMB) | payer OTHER, SELFPAY ==
--- NOTE | 2024-07-24 13:39 | A.OFFPC_ITS ---
Vital Signs 07/24/24 13:40 Height 4 ft 8 in Weight 144 lb BMI 32.3 BP 122/70 Blood Pressure Location Lt brachial Position Sitting Pulse 66 Pulse Source Pulse Oximeter Temp 97.5 F Temp Source Axillary Pulse Oximetry (%) 96 Oxygen Delivery Method Room Air Intake Visit Reasons: Review Labs Associate Store Leader Required: No Accompanied by: Spouse Allergies Penicillins Allergy (Unknown, Verified 07/24/24 13:41) Unknown Tobacco use date assessed: 07/24/24 Fall risk assessment: No Falls in past year Last assessed Fall Risk: 07/24/24 Dental Screening Dental Screen Date: 07/24/24 Did you have a dental visit in the last 12 months?: Yes Did you have a dental problem in the last 6 months where you did not have access to dental care?: No PFSH Medical History (Updated 07/24/24 @ 14:17 by Luis Umana MD) Hyperlipidemia GERD (gastroesophageal reflux disease) Family History (Updated 07/24/24 @ 13:53 by Lakeisha Kraft CMA) Mother No problems noted. Father No problems noted. Social History Housing: House Patient Tobacco Use Status: Never used Tobacco e-Cigarette/Vaping Use: Never Used service: No Current occupational status: employed Cognitive needs: No Hearing needs: No Vision needs: Yes (rx glasses) Questionnaire PHQ-9 Over the last 2 weeks, how often have you been bothered by any of the following problems? 1. Little interest or pleasure in doing things: not at all 2. Feeling down, depressed, or hopeless: not at all 3. Trouble falling or staying asleep, or sleeping too much: not at all 4. Feeling tired or having little energy: not at all 5. Poor appetite or overeating: not at all 6. Feeling bad about yourself - or that you are a failure or have let yourself or your family down: not at all 7. Trouble concentrating on things, such as reading the newspaper or watching television: not at all 8. Moving or speaking so slowly that other people could have noticed. Or the opposite - being so fidgety or restless that you have been moving around a lot more than usual: not at all 9. Thoughts that you would be better off or of hurting yourself in some way: not at all Total score: 0 Source: Developed by Drs. Denver Rivers, Mehrdad Montenegro and colleagues, with an educational velma from [employer]. Thrive Questionnaire Date Thrive assessed: 07/24/24 I am a: Patient Within the past 12 months, did the food you bought not last and you didn't have the money to get more?: Never true Within the past 12 months, did you worry whether your food would run out before you got money to buy more?: Never true Do you have trouble paying for medicines?: No Do you have trouble getting transportation to medical appointments?: No Do you have trouble paying your heating and electricity bill?: No Do you have trouble taking care of your child, family member or friend?: No Do you have trouble with day-to-day activities such as bathing, preparing meals, shopping, managing finances, etc.?: No Are you currently unemployed and looking for a job?: No Are you interested in more education?: No THRIVE Score: 0 AUDIT C Alcohol Use Questionnaire (AUDIT-C) 1. How often do you have a drink containing alcohol?: Never 3. How often do you have six or more drinks on one occasion?: Never Total Score: 0 CALISTA-7 AMB Questionnaire CALISTA-7 Date CALISTA - 7 assessed: 07/24/24 Feeling nervous, anxious, or on edge: 0 = Not at all Not being able to stop or control worryin = Not at all Worrying too much about different things: 0 = Not at all Trouble relaxin = Not at all Being so restless that it is hard to sit still: 0 = Not at all Becoming easily annoyed or irritable: 0 = Not at all Feeling afraid as if something awful might happen: 0 = Not at all Total CALISTA-7 score (0-4 normal; 5-9 mild; 10-14 moderate; 15-21 severe): 0 Source: Developed by Drs. Denver Rivers, Mehrdad Montenegro and colleagues, with an educational velma from [employer]. Physical exam (Primary Care) Vital Signs: Last Vital Signs Temp 97.5 F 07/24/24 13:40 Pulse 66 07/24/24 13:40 BP 122/70 07/24/24 13:40 Pulse Ox 96 07/24/24 13:40 Oxygen Delivery Method Room Air 07/24/24 13:40 BMI result Body Mass Index 32.3 Tobacco/Smoking Status: Tobacco use Status Tobacco use date assessed 07/24/24 07/24/24 13:43 Patient Tobacco Use Status Never used Tobacco 07/24/24 13:43 e-Cigarette/Vaping Use Never Used 07/24/24 13:43 PHQ-9: PHQ-9 Score PHQ-9: Total score 0 07/24/24 13:43 Thrive Assessment: Date of Thrive Assessment Date Thrive assessed 07/24/24 07/24/24 13:43 Coding Level of Care Code New Pt Level 4 (97803) Complex EM visit Add On G2211 Diagnoses GERD (gastroesophageal reflux disease) K21.9 Hyperlipidemia E78.5 Assessment & Plan Assessment & Plan (1) GERD (gastroesophageal reflux disease): Code(s): K21.9 - Gastro-esophageal reflux disease without esophagitis Category: Medical Plan: Trial of PPI. Follow up in 4 weeks. (2) Hyperlipidemia: Code(s): E78.5 - Hyperlipidemia, unspecified Category: Medical Plan: BW revd with patient. Patient will decide and let me know, if she wants to get on statins. Plan Cologard screening ordered. History of Present Illness The patient is a 68-year-old female presenting with gastrointestinal concerns and recent findings of elevated cholesterol. She reports morning tenderness in her stomach without a clear location and experiences belching frequently, though denies consumption of fizzy drinks. There is no nocturnal discomfort or weight loss noted. Despite another physician attributing the stomach issues to excess weight, she remains concerned and observes no significant soda intake. The patient takes medication for hypothyroidism, feeling cold often, and notes morning muscle aches possibly linked to a previous work-related back injury managed by physical therapy. Her familial history of arthritis raises concern, especially with morning symptoms. Regarding cholesterol, a recent reading showed 262 mg/dL. The patient has maintained a proper diet and exercise regime, yet acknowledges familial difficulty in cholesterol management. She is contemplating statin treatment, aware of cardiovascular risk and potential side effects. 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 - Expresses difficulty with weight management, shared with family. - Has familial history of arthritis impacting health perceptions. Review of Systems - Gastrointestinal: Reports belching, denies abdominal pain or discomfort at night. - Musculoskeletal: Reports muscle aches, especially in the morning. - Endocrine: Reports feeling cold consistently, under thyroid medication. - Weight: Denies significant unexplained weight loss, acknowledges weight gain. Physical Exam General: Cooperative and healthy appearing Nutritional Appearance: Well nourished Orientation/consciousness: Patient oriented x3 Limitations: No limitations Head: Normal to inspection General: Appearance normal, both eyes and all related structures Neck: Normal visual inspection Chest: Normal palpation of entire chest wall Respiratory: Normal respiratory effort Neurology: Patient oriented x3 Results - Labs: Elevated cholesterol level at 262 mg/dL. Plan I prescribed omeprazole for the patient's gastroesophageal reflux disease symptoms, advising daily use and review in three weeks. Her cholesterol was addressed with a potential low-dose statin plan, emphasizing the importance of adherence and monitoring for side effects. A month-long observation will decide initiation. Cologuard testing was advised due to historical colonoscopy avoidance. Continuation of thyroid medication was noted, with advisement on weight and dietary adherence. Finally, muscle aches were considered in relation to her previous back injury. Patient was informed and verbally consented to the use of an ambient scribe for clinic note documentation during this visit. Discussion Notes I discussed the potential need for statin therapy to mitigate cardiovascular risks associated with elevated cholesterol levels of 262 mg/dL, emphasizing the need for consistency in intake and potential side effects. We talked over the benefits of lower cholesterol in preventing heart attacks and strokes. The gastrointestinal issues led to a prescription for omeprazole, while we decided on Cologuard for colon cancer screening due to anesthesia concerns. We reviewed her hypothyroidism and importance of maintaining current medication. The possibility of statins exacerbating muscle aches was relayed, ensuring informed choice and open consideration of alternative medications if side effects occur. Follow-ups are scheduled to reassess symptoms and medication impact. Patient Instructions - Take omeprazole daily for acid reflux as recommended. - Consider and prepare for possible initiation of low-dose statin therapy. - Maintain current thyroid medication and monitor symptoms. - Undergo Cologuard test as a non-invasive colon cancer screening option. - Follow a balanced diet and strive for regular exercise to assist weight management. - Return for follow-up as scheduled to discuss efficacy of current treatment and monitor cholesterol management. - Report any muscle pain or side effects immediately. Orders: Referrals Cologuard Test Z12.11 - Encounter for screening for malignant neoplasm of colon Medications: New pantoprazole 40 mg PO DAILY 90 tabs 1RF
[2024-07-24 13:40] VITALS: BP 122/70; PULSE 66; TEMP 36.4; O2SAT 96; BMI 32.3
--- OUTSIDE RECORDS SUMMARY | 2024-07-24 15:21 | XMS_ITS ---
Author Organization [facility] Address [address] [place] [address] Care Team Providers Care Supervising Floorperson Name Role Phone Dejan Petit MD Primary Care Provider Randell Palmer [facility] [phone] Encounters Encounter Location Date Provider Diagnosis [facility] [address] [place] [address] 02/22/2023 Randell Oquendo Plan Of Treatment No Information Progress Notes * Polly VICTORIA CDOB:[birth year] (68 yo F)Acc No.[id number]:02/22/2023 Progress Note Patient:Analilia QUINTANAycsherrell Duarte Provider:Gloria Oquendo DPM :1955???Age:67 Y???Sex:Female D ate:02/22/2023 Address:[address] [place], [place] [id number] Pcp:Dejan Petit MD Subjective: * Chief Complaints: [...] DPM Date:? 023 Generated for Printi ng/Faxing/eTransmitting on:?07/24/2024 03:21 PM EDT
--- OUTSIDE RECORDS SUMMARY | 2024-07-24 15:22 | XMS_ITS | Patient Health Record ---
Author Organization [facility] Address [address] [place] [address] Care Team Providers Care Trench Shovel Operator Name Role Phone Marisabel BAUGH, Dejan Primary Care Provider Randell Palmer Unavailable [phone] Allergies Allergen (clinical drug ingredient) Drug/Non Drug [...] Status Risk Notes Problem Acquired hallux valgus (53154164) Hallux valgus (acquired), left foot (M20.12) Active confirmed Problem Localized, primary osteoarthritis of the ankle and/or foot (494487170) Primary osteoarthrit is, left ankle and foot (M19.072) Active confirmed Plan Of Treatment Pending Test Test Name Order Date X ray : Ankle, left 3V 11/04/2022, J0702- INJECT or DRAIN, JOINT/BUR SA 11/04/2022 Insurance Providers Payer Name Payer Address Payer Phone Subscriber Number Group Number Insured Name Patient Relationship to Insured Coverage Start Date Coverage End Date [facility] [address] [place] [address] [id number] Polly Vidal Self - patient is [...]
--- OUTSIDE RECORDS SUMMARY | 2024-07-24 15:22 | XMS_ITS ---
Author Organization [facility] Address [address] [place] [address] Care Team Providers Care Final Assembly Inspector Name Role Phone Dejan Petit MD Primary Care Provider Randell Palmer Unavailable [phone] Allergies Allergen (clinical drug ingredient) Drug/Non Drug [...] 02/24/2023 Encounters Encounter Location Date Provider Diagnosis [facility] [address] [place] [address] 02/24/2023 Randell Oquendo Pain in left foot [...] * Polly VICTORIA CDOB:[birth year] (67 yo F)Acc No.[id number]:02/24/2023 Progress Note Patient:?Polly Victoria C Provider:?Randell Oquendo DPM :1955???Age:67 Y???Sex:Female D ate:02/24/2023 Address:[address] [place], [place] [address] Pcp:Dejan Petit MD Subjective: * Chief Complaints: [...] causing blood pressure to go low + [id number] * Hospitalization/Major Diagno stic Procedure:?Back Joint Injury- [...] ?Marital status: . 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 * Medications:?TakingAspirin L evothyroxine Sodium 88 MCG [...] if she cotninues to have pain into [facility].? * Follow Up:?prn * Images: * Sign off status: Completed true * Provider:?Randell Oquendo DPM Date:? 023 Generated for Printi ng/Faxing/eTransmitting on:?07/24/2024 03:21 PM EDT History and Physical Notes * HPI [...]
--- OUTSIDE RECORDS SUMMARY | 2024-07-24 15:22 | XMS_ITS | Data Portability ---
Author Organization [facility] Address [address] [place] [address] Assessment No assessment recorded. Plan of Treatment [...] colonoscopy referral 2018 denisha Virgen Jr, MD, [address] [place] [address] [place], [address], 9 09:45:47 Procedures None recorded. Surgeries None recorded. Imaging None recorded. Medication Orders None recorded. Patient TargetsNo targets recorded. Patient Instructions Encounter Date Encounter Id Patient Instructions Last Modified By Organization Details Last Modified Time 2018 [id number] Work on weight loss antonella Not available [...] Address Organization Details Recorded Time Hypertensive disorder 08119275 [facility] [address] [facility] 9 08:03:20 Hypothyroidism 15169667 Active 2018 [facility] 9 08:03:31 Hypercholestero lemia 23149353 Active 2018 [place] [facility] 9 08:03:40 Problem Notes None recorded. Procedures Surgical History Date Name Laterality Status Provider Name and Address Organization Details Recorded Time 6 Colonoscopy completed [facility] 06/27/2018 08:05:39 arthroscopy of knee completed [facility] 06/27/2018 08:09:04 Imaging Results None recorded. Procedure Notes None recorded. Medical Equipment None Reported. Allergies Allergen ID Allergen Name Allergen Category Reaction Reaction Severity Criticality Documentation Date Start Date Code Code System Note Provider Name and Address Organization Details Recorded Time 2913 Product containin g penicilli n (product) medicatio n Not available Not available Not available 06/27/2018 89422 8001 SNOMED [place] [facility] 9 08:05:57 Medications Name Sig [...] Updated DateTime 9 137.16 cm 33.8 kg/m2 98626.0 1 g 88 /min 96 % 96 % 140 mm[Hg] 84 mm[Hg] [facility] 9 15:01:01 Date Recorded Systolic blood pressure Diastolic blood pressure Provider Name and Address Organization Details Last Updated DateTime 2018 132 mm[Hg] 80 mm[Hg] Nicole Zepeda NP, [address] [place], [address], [facility] 2018 15:23:50 Social History Question Answer Notes LastModified by Organizat ion Details LastModified Time Tobacco Smoking Status Never Smoker [facility]2018 08:08:43 What Was The Date [...] SNOMED-CT Code Diagnosis ICD10 Code Diagnosis Note [id number] Nicole Zepeda NP, S [facility] [address] [facility],[place] [address] 2018 14:41:37 2018 15:56:03 Hypercholesterolemia 28988472 E78.00 Hypertensive disorder 38 050819 I10 Hypothyroidism 80807372 E03.9 Screening procedure 2012 5006 Z13.9 Health Concerns Section Related Observation LastModified by Organization Detai ls LastModified Time None Recorded Concern Status LastModified by Organization Details LastModified Time None Recorded Advance Directives Directive None Recorded Payers Encounter Date Sequence Insurance Name Policy Number Policy Burt Covered Member ID Burt Member ID Guarantor Name [address] [place] [address] [id number] Polly Combs [id number] Polly Combs Notes Date Note Type Note Provider Name a nd Address Organization Details Recorded Time 2018 text/html Routine new pt appt known to this provider from previous office 3 years ago hurt back at work-lots P.T., 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 Eats at home, limited take out Nicole Zepeda NP, [address] [facility], [place], [address], [facility] 2018 15:45:11 OBGyn Episode No OBEpisode recorded.
--- OUTSIDE RECORDS SUMMARY | 2024-07-24 15:22 | XMS_ITS ---
Author Organization [facility] Address [address] [place] [address] Care Team Providers Care Senior Network Engineer Name Role Phone Dejan Petit MD Primary Care Provider Randell Palmer [phone] REASON FOR VISIT covid protocol Encounters Encounter Location Date Provider Diagnosis [facility] [address] [place] [address] 02/23/2023 Randell Oquendo Plan Of Treatment No Information Progress Notes * Polly VICTORIA CDOB:[birth year] (67 yo F)Acc No.[id number]:02/23/2023 Patient:?Polly Victoria :1955???Age:67 Y???Sex:Female Address:[address] [place] [address] * true * Date:? Generated for Printi ng/Fanatalieg/eTransmitting on:?07/24/2024 03:21 PM EDT
== END 2024-07-24 14:18 | disposition home or self-care (01) ==
PROVIDERS: PCP Internal Medicine; Visit Provider Internal Medicine
DX: K21.9 Gastro-esophageal reflux disease without esophagitis (principal); E78.5 Hyperlipidemia, unspecified

== ENCOUNTER → 2024-07-24 13:20 | Outpatient (BNVA) | payer OTHER, SELFPAY | PROVIDERS: PCP Internal Medicine; Visit Provider Internal Medicine | DX: Z13.89 Encounter for screening for other disorder (principal) ==

== ENCOUNTER 2024-08-23 14:53 | Outpatient (AMB) | payer OTHER, SELFPAY ==
[2024-08-23 14:17] VITALS: BP 126/80; PULSE 76; TEMP 36.2; O2SAT 98; BMI 31.8
--- NOTE | 2024-08-23 14:17 | A.OFFPC_ITS ---
Vital Signs 08/23/24 14:17 Height 4 ft 8 in Weight 142 lb BMI 31.8 BP 126/80 Blood Pressure Location Lt brachial Position Sitting Pulse 76 Pulse Source Pulse Oximeter Temp 97.2 F Temp Source Axillary Pulse Oximetry (%) 98 Oxygen Delivery Method Room Air Intake Visit Reasons: 1 Month F/U Food Service Manager Required: No Accompanied by: Self / Same As Patient Allergies Penicillins Allergy (Unknown, Verified 08/23/24 14:17) Unknown Tobacco use date assessed: 08/23/24 Fall risk assessment: No Falls in past year Last assessed Fall Risk: 08/23/24 Dental Screening Dental Screen Date: 08/23/24 Did you have a dental visit in the last 12 months?: Yes Did you have a dental problem in the last 6 months where you did not have access to dental care?: No [facility] Medical History Hyperlipidemia GERD (gastroesophageal reflux disease) Family History (Updated 08/23/24 @ 15:02 by Lakeisha Kraft MA) Mother No problems noted. Father No problems noted. Social History Housing: House Patient Tobacco Use Status: Never used Tobacco e-Cigarette/Vaping Use: Never Used service: No Current occupational status: employed Cognitive needs: No Hearing needs: No Vision needs: Yes (rx glasses) Questionnaire PHQ-9 Over the last 2 weeks, how often have you been bothered by any of the following problems? 1. Little interest or pleasure in doing things: not at all 2. Feeling down, depressed, or hopeless: not at all 3. Trouble falling or staying asleep, or sleeping too much: not at all 4. Feeling tired or having little energy: not at all 5. Poor appetite or overeating: not at all 6. Feeling bad about yourself - or that you are a failure or have let yourself or your family down: not at all 7. Trouble concentrating on things, such as reading the newspaper or watching television: not at all 8. Moving or speaking so slowly that other people could have noticed. Or the opposite - being so fidgety or restless that you have been moving around a lot more than usual: not at all 9. Thoughts that you would be better off or of hurting yourself in some way: not at all Total score: 0 Source: Developed by Drs. Denver Rivers, Fara Michael, Mehrdad Jordan and colleagues, with an educational velma from [employer]. Thrive Questionnaire Date Thrive assessed: 08/23/24 I am a: Patient Within the past 12 months, did the food you bought not last and you didn't have the money to get more?: Never true Within the past 12 months, did you worry whether your food would run out before you got money to buy more?: Never true Do you have trouble paying for medicines?: No Do you have trouble getting transportation to medical appointments?: No Do you have trouble paying your heating and electricity bill?: No Do you have trouble taking care of your child, family member or friend?: No Do you have trouble with day-to-day activities such as bathing, preparing meals, shopping, managing finances, etc.?: No Are you currently unemployed and looking for a job?: No Are you interested in more education?: No THRIVE Score: 0 AUDIT C Alcohol Use Questionnaire (AUDIT-C) 1. How often do you have a drink containing alcohol?: Never 3. How often do you have six or more drinks on one occasion?: Never Total Score: 0 CALISTA-7 AMB Questionnaire CALISTA-7 Date CALISTA - 7 assessed: 08/23/24 Feeling nervous, anxious, or on edge: 0 = Not at all Not being able to stop or control worryin = Not at all Worrying too much about different things: 0 = Not at all Trouble relaxin = Not at all Being so restless that it is hard to sit still: 0 = Not at all Becoming easily annoyed or irritable: 0 = Not at all Feeling afraid as if something awful might happen: 0 = Not at all Total CALISTA-7 score (0-4 normal; 5-9 mild; 10-14 moderate; 15-21 severe): 0 Source: Developed by Drs. Denver Rivers, Mehrdad Montenegro and colleagues, with an educational velma from [employer]. Physical exam (Primary Care) Vital Signs: Last Vital Signs Temp 97.2 F 08/23/24 14:17 Pulse 76 08/23/24 14:17 BP 126/80 08/23/24 14:17 Pulse Ox 98 08/23/24 14:17 Oxygen Delivery Method Room Air 08/23/24 14:17 BMI result Body Mass Index 31.8 Tobacco/Smoking Status: Tobacco use Status Tobacco use date assessed 08/23/24 08/23/24 14:19 Patient Tobacco Use Status Never used Tobacco 08/23/24 14:19 e-Cigarette/Vaping Use Never Used 08/23/24 14:19 PHQ-9: PHQ-9 Score PHQ-9: Total score 0 08/23/24 15:03 Thrive Assessment: Date of Thrive Assessment Date Thrive assessed 08/23/24 08/23/24 14:19 Coding Level of Care Code Est Pt Level 4 (82028) Complex EM visit Add On G2211 Diagnoses GERD (gastroesophageal reflux disease) K21.9 Assessment & Plan Assessment & Plan (1) GERD (gastroesophageal reflux disease): Code(s): K21.9 - Gastro-esophageal reflux disease without esophagitis Category: Medical Plan: PPI was not of much help. Will wait, diet explained. For her chol, she is hesitating to start any statins. Plan History of Present Illness The patient is a 69-year-old female presenting with medication side effect and sore throat. She began experiencing tinnitus after taking pantoprazole for stomach issues. The tinnitus began suddenly and had no associated pain or ear discharge. Upon discontinuing the medication following medical advice, the tinnitus lessened but did not entirely resolve. This has been a concern especially in light of impending travel plans in two weeks, though current symptoms are improving. Additionally, the patient has suffered from a severe sore throat over the past week, persisting to the point of necessitating a day off work. While initially expecting relief, she now feels she's developing a cold. She denies any previous incidents of severe sore throats and hypothesizes allergies as a potential cause. In the past, she experienced shingles accompanied by eye redness after an antibiotic regimen post-dental treatment. This history contributes to her cautious stance on medication use, alongside a documented penicillin allergy. No issues with bowels are reported, such as constipation or diarrhea. The patient recalls an adverse reaction to anesthesia during a colonoscopy, needing pharmacologic assistance to regain consciousness post-procedure. Social History - Employment: The patient took a day off work due to a sore throat. - Family: Traveling to visit her son in two weeks. - Medication Reactions: Expressed issues with certain medications affecting activities due to adverse reactions. Review of Systems - Ears: Reports tinnitus (dull humming). - Gastrointestinal: Reports no constipation, diarrhea, or vomiting. - Respiratory: Reports severe sore throat and possible cold onset. - General: Denies fever. - Allergies: Reports penicillin allergy. Physical Exam General: Cooperative and healthy appearing Nutritional Appearance: Well nourished Orientation/consciousness: Patient oriented x3 Limitations: No limitations Head: Normal to inspection General: Appearance normal, both eyes and all related structures Neck: Normal visual inspection Chest: Normal palpation of entire chest wall Respiratory: Normal respiratory effort Neurology: Patient oriented x3 Results Plan 1. Tinnitus Secondary To Medication - Discontinue pantoprazole; monitor symptoms. - Plan alternative GERD management after vacation. 2. Gastroesophageal Reflux Disease - Reassess treatment efficacy after patient returns. - Interim rely on non-medication strategies. 3. Viral Sore Throat - Recommend symptomatic relief; emphasize rest and hydration. - Use decongestants as needed to combat symptoms. 4. Drug Allergy - Ensure documentation and continued avoidance. 5. Adverse Reaction To Systemic Medication - Closely monitor medication planning and side effects. Discussion Notes I discussed the continuation of symptoms related to tinnitus in the context of medication usage, specifically pantoprazole, and the plan to discontinue this medication as the patient has noted some improvement after stopping it. We will reassess the management of her gastroesophageal reflux disease after her vacation. For her severe sore throat, likely viral, I advised symptomatic management with rest, hydration, and svev-zlq-dnukabh decongestants to manage associated congestion from a possible cold. We reviewed the importance of documenting her penicillin allergy to prevent future reactions. I emphasized careful consideration of any new medications due to her history of adverse reactions, particularly involving anesthesia and previous antibiotic therapy. Patient Instructions - Stop taking pantoprazole for now. - Rest and drink plenty of fluids for sore throat relief. - Use an wysv-ihe-vgyfpwz decongestant to ease cold symptoms. - Avoid penicillin and inform healthcare providers of this allergy. - Plan a follow-up post-travel to assess ongoing needs. - Monitor ear symptoms and contact if they worsen before travel.
--- OUTSIDE RECORDS SUMMARY | 2024-08-23 14:56 | XMS_ITS | Patient Health Record ---
[facility] Organization [facility] Address [address] [place] [address] Care Team Providers Care Product Demonstrator Name Role Phone Marisabel BAUGH, Dejan Primary Care Provider Randell Palmer Unavailable [phone] Allergies Allergen (clinical drug ingredient) Drug/Non Drug [...] Status Risk Notes Problem Acquired hallux valgus (54779306) Hallux valgus (acquired), left foot (M20.12) Active confirmed Problem Localized, primary osteoarthritis of the ankle and/or foot (901477133) Primary osteoarthrit is, left ankle and foot (M19.072) Active confirmed Plan Of Treatment Pending Test Test Name Order Date X ray : Ankle, left 3V 11/04/2022, J0702- INJECT or DRAIN, JOINT/BUR SA 11/04/2022 Insurance Providers Payer Name Payer Address Payer Phone Subscriber Number Group Number Insured Name Patient Relationship to Insured Coverage Start Date Coverage End Date [facility] [address] [place] [address] [id number] Polly Vidal Self - patient is [...]
--- OUTSIDE RECORDS SUMMARY | 2024-08-23 14:56 | XMS_ITS ---
Author Organization [facility] Address [address] [place] [address] Care Team Providers Care Ticket Printer And Tagger Name Role Phone Dejan Petit MD Primary Care Provider Randell Palmer [phone] REASON FOR VISIT covid protocol Encounters Encounter Location Date Provider Diagnosis [facility] [address] [place] [address] 02/23/2023 Randell Oquendo Plan Of Treatment No Information Progress Notes * Polly VICTORIA CDOB:[birth year] (67 yo F)Acc No.[id number]:02/23/2023 Patient:?Polly Victoria :1955???Age:67 Y???Sex:Female Address:[address] [place] [address] * true * Date:? Generated for Printi ng/Fanatalieg/eTransmitting on:?08/23/2024 02:56 PM EDT
--- OUTSIDE RECORDS SUMMARY | 2024-08-23 14:56 | XMS_ITS ---
Author Organization [facility] Address [address] [facility] [place] [address] Care Team Providers Care Blemish Remover Name Role Phone Dejan Petit MD Primary Care Provider Rnadell Palmer Unavailable [phone] Allergies Allergen (clinical drug ingredient) Drug/Non Drug [...] 02/24/2023 Encounters Encounter Location Date Provider Diagnosis [facility] [address] [place] [address] 02/24/2023 Randell Oquendo Pain in left foot [...] * Polly VICTORIA CDOB:[birth year] (67 yo F)Acc No.[id number]:02/24/2023 Progress Note Patient:?Polly Victoria C Provider:?Randell Oquendo DPM :1955???Age:67 Y???Sex:Female D ate:02/24/2023 Address:[address] [place], [place] [id number] Pcp:Dejan Petit MD Subjective: * Chief Complaints: [...] causing blood pressure to go low + [id number] * Hospitalization/Major Diagno stic Procedure:?Back Joint Injury- [...] ?Marital status: . 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 * Medications:?TakingAspirin L evothyroxine Sodium 88 MCG [...] if she cotninues to have pain into halfway.? * Follow Up:?prn * Images: * Sign off status: Completed true * Provider:?Randell Oquendo DPM Date:? 023 Generated for Printi ng/Faxing/eTransmitting on:?08/23/2024 02:56 PM EDT History and Physical Notes * [...]
== END 2024-08-23 15:55 | disposition home or self-care (01) ==
LOC: HO.HMCHD 14:54
PROVIDERS: PCP Internal Medicine; Visit Provider Internal Medicine
DX: K21.9 Gastro-esophageal reflux disease without esophagitis (principal)

== ENCOUNTER → 2024-08-23 14:53 | Outpatient (BNVA) | payer OTHER, SELFPAY | PROVIDERS: PCP Internal Medicine; Visit Provider Internal Medicine | DX: Z13.89 Encounter for screening for other disorder (principal) ==

== ENCOUNTER 2024-11-22 07:01 | Outpatient (REF) | payer OTHER, SELFPAY ==
--- OUTSIDE RECORDS SUMMARY | 2024-11-22 07:03 | XMS_ITS | Patient Health Record ---
Author Organization [facility] Address [address] [place] [address] Care Team Providers Care Draw Bench Operator Helper Name Role Phone Raúl Balderas Primary Care Provider Zak Meyers Jr Unavailable Reason For Referral No Information Plan Of Treatment No Information Insurance Providers Payer Name Payer Address Payer Phone Subscriber Number Group Number Insured Name Patient Relationship to Insured Coverage Start Date Coverage End Date [facility] [address] [place] [address] [id number] RENATO BUSH Self - patient is the insured
--- OUTSIDE RECORDS SUMMARY | 2024-11-22 07:04 | XMS_ITS | Patient Health Record ---
Author Organization [facility] Address [address] [place] [address] Care Team Providers Care Meat Clerk Name Role Phone Dejan Petit MD Primary Care Provider Randell Palmer Unavailable [phone] Allergies Allergen (clinical drug ingredient) Drug/Non Drug [...] 10 MG 1 tablet Orally Once a day; Duration: 30 day(s) Active Nabumetone 750 MG 1 tablet Orally ONCE A DAY WITH FOOD; Duration: 30 day(s) Active Metoprolol Succinate 50 MG 1 capsule Ora lly Once a day; Duration: 30 day(s) Active Levothyroxine Sodium 88 MCG 1 tablet in the morning on an empty stomach Orally Once a day; Duration: 30 day(s) Active Aspirin Active Social History [...] Status Risk Notes Problem Acquired hallux valgus (75909412) Hallux valgus (acquired), left foot (M20.12) Active confirmed Problem Localized, primary osteoarthritis of the ankle and/or foot (479443229) Primary osteoarthrit is, left ankle and foot (M19.072) Active confirmed Plan Of Treatment Pending Test Test Name Order Date X ray : Ankle, left 3V 11/04/202245919, J0702- INJECT or DRAIN, JOINT/BUR SA 11/04/2022 Insurance Providers Payer Name Payer Address Payer Phone Subscriber Number Group Number Insured Name Patient Relationship to Insured Coverage Start Date Coverage End Date [facility] [address] [place] [id number] Polly Vidal Self - patient is [...]
== END 2024-11-22 07:02 | disposition home or self-care (01) ==
LOC: HO.MAMMO 07:01
PROVIDERS: PCP Internal Medicine; Visit Provider Internal Medicine
DX: Z12.31 Encounter for screening mammogram for malignant neoplasm of breast (principal)
CPT/HCPCS: 77063; 77067

== ENCOUNTER → 2024-11-22 07:30 | Outpatient (BNV) | payer OTHER, SELFPAY | PROVIDERS: PCP Internal Medicine; Visit Provider Radiology Body Imaging | DX: Z12.31 Encounter for screening mammogram for malignant neoplasm of breast (principal) | CPT/HCPCS: 77063; 77067 ==

== ENCOUNTER 2024-12-19 09:42 | Outpatient (AMB) | payer OTHER, SELFPAY ==
--- NOTE | 2024-12-19 09:43 | A.OFFPC_ITS ---
Vital Signs 12/19/24 09:44 Height 4 ft 8 in Weight 141 lb BMI 31.6 BP 148/54 H Blood Pressure Location Rt brachial Position Sitting Respiration 16 Pulse 67 Pulse Source Pulse Oximeter Temp 97.8 F Temp Source Temporal Artery Scan Pulse Oximetry (%) 95 Oxygen Delivery Method Room Air Intake Visit Reasons: L Ear Muffled Sound Technical Adjuster Required: No Accompanied by: Self / Same As Patient Allergies Penicillins Allergy (Unknown, Verified 12/19/24 09:43) Unknown Tobacco use date assessed: 08/23/24 Dental Screening Dental Screen Date: 08/23/24 HPI HPI Comments History of Present Illness Details The patient is a 69-year-old female presenting with a hearing disturbance in the left ear. She reports experiencing a muffled sensation and a continuous humming sound in the left ear, which she describes as similar to a motor running. This is the second occurrence, with the first episode happening in August, accompanied by a terrible sore throat. At that time, she sought care at urgent care and was prescribed Flonase, which she did not take as the symptoms resolved when planning to travel by airplane. Currently, she denies any pain associated with the ear but indicates her hearing has decreased. She has never experienced dizziness or vertigo and denies any previous hearing issues aside from the aforementioned incident. Although she cleans her ears with Q-tips, she reports no significant wax buildup. Regarding her medical history, the patient also notes experiencing shingles in March two years ago, with associated nerve-related issues. Her essential hypertension and hypothyroidism are managed with metoprolol succinate and levothyroxine, respectively. Hyperlipidemia remains a concern, with a history of high cholesterol levels affecting her cardiovascular risk. There is no report of recent weight loss, though concerns about inflammation and abdominal tenderness are mentioned, along with potential gastric discomfort linked to previous medication. She has a history of high blood pressure, and recent lab work shows persistently elevated cholesterol levels. The patient denies smoking, drinking alcohol, or drug use. Medical History: - Essential Hypertension - Hyperlipidemia - Hypothyroidism - History of Shingles (March, two yea rs ago) Medications: - Metoprolol succinate 50mg for hyperten fabiola - Lisinopril for hypertension - Levothyroxine 88mcg for hypothyroidism Family History: - Mother had experience with statins Health Maintenance: - High cholesterol levels (262 to 238, L DL at 162) - Blood pressure monitoring at home iain mmended - Mammogram completed with normal result s - Colorectal cancer screening with Colog uard completed and results fine - Discussion on cardiovascular disease r isk and statin therapy Social: - Marital status: - No reported substance use (alcohol, to bacco, drugs) - Balanced diet with occasional indulgen pieter (e.g., fair food like Kazakh fries) - Patient remains active and hydrates we [place] Medical History Hyperlipidemia GERD (gastroesophageal reflux disease) Family History (Updated 08/23/24 @ 15:02 by Lakeisha Kraft MA) Mother No problems noted. Father No problems noted. Social History Housing: House Patient Tobacco Use Status: Never used Tobacco e-Cigarette/Vaping Use: Never Used service: No Current occupational status: employed Cognitive needs: No Hearing needs: No Vision needs: Yes (rx glasses) Questionnaire Thrive Questionnaire Date Thrive assessed: 08/23/24 CALISTA-7 AMB Questionnaire CALISTA-7 Date CALISTA - 7 assessed: 08/23/24 Source: Developed by Drs. Denver Rivers, Fara Michael, Mehrdad Jordan and colleagues, with an educational velma from [employer]. Review of Systems Const Details: - Ears: Reports muffled sensation and decreased hearing in the left ear, denies pain. - Neurological: Denies dizziness, vertigo, and headaches. - General: Denies weight loss and falls. All systems reviewed & are unremarkable except as noted in HPI and below Physical exam (Primary Care) Vital Signs: Last Vital Signs Temp 97.8 F 12/19/24 09:44 Pulse 67 12/19/24 09:44 Resp 16 12/19/24 09:44 BP 148/54 H 12/19/24 09:44 Pulse Ox 95 12/19/24 09:44 Oxygen Delivery Method Room Air 12/19/24 09:44 BMI result Body Mass Index 31.6 Tobacco/Smoking Status: Tobacco use Status Tobacco use date assessed 08/23/24 12/19/24 09:45 Patient Tobacco Use Status Never used Tobacco 12/19/24 09:45 e-Cigarette/Vaping Use Never Used 12/19/24 09:45 Thrive Assessment: Date of Thrive Assessment Date Thrive assessed 08/23/24 12/19/24 09:45 Const Other: General: +Alert and oriented, Well nourished, No acute distress. Eye: Pupils are equal, round and reactive to light, Intact accommodation, Extraocular movements are intact, Normal conjunctiva, Vision unchanged. HENT: Normocephalic, Atraumatic, Tympanic membranes are clear, Hearing decreased in the left ear, Oral mucosa is moist, No pharyngeal erythema, Ear canals patent. Air Conduction > Bone Conduction Bilaterally Respiratory: Lungs CTA bilaterally, No wheeze, Respirations are non-labored. Cardiovascular: Regular rate, Regular rhythm, S1 auscultated, S2 auscultated, No murmur, Good pulses equal in all extremities, Normal peripheral perfusion, No edema. Gastrointestinal: Soft, Tender in the abdomen, Non-distended, Normal bowel sounds, No organomegaly. Musculoskeletal: Normal range of motion, Normal strength, Tenderness noted, No swelling, No deformity, Normal gait. Integumentary: Warm, Dry, [place], Intact. Neurologic: Alert, Oriented, Normal sensory, Normal motor function, No focal defects, Cranial Nerves II-XII are grossly intact, Normal deep tendon reflexes. Psychiatric: Cooperative, Appropriate mood & affect, Normal judgment. Coding Level of Care Code Est Pt Level 4 (56334) Complex EM visit Add On G2211 Diagnoses Hyperlipidemia, unspecified hyperlipidemia type E78.5 Hyperlipidemia type: unspecified Left-sided tinnitus H93.12 Hypertension, unspecified type I10 Hypertension type: unspecified Hypothyroidism E03.9 Assessment & Plan Assessment & Plan (1) Hyperlipidemia: Comment: - Initiated atorvastatin therapy; discussed risk reduction and follow-up on lipid profile. - If develops muscle symptoms will switch to rosuvastatin Code(s): E78.5 - Hyperlipidemia, unspecified Category: Medical Qualifiers: Hyperlipidemia type: unspecified Qualified Code(s): E78.5 - Hyperlipidemia, unspecified (2) Left-sided tinnitus: Comment: Similar episodes prior that resolved on their own (discontinuation pantoprazole). Was treated for a nose infection of the same time but never completed treatment since symptoms have resolved On exam ears are clear bilaterally with no nystagmus observed on exam or disequilibrium. Air conduction greater than bone conduction in both areas Could be secondary to lisinopril though unlikely given she has been on the medication for multiple years. If she continues to have symptoms we will have to consider brain imaging to rule out any intracranial pathology. For now we will obtain an audiometric testing Code(s): H93.12 - Tinnitus, left ear Category: Medical (3) Hypertension: Code(s): I10 - Essential (primary) hypertension Qualifiers: Hypertension type: unspecified Qualified Code(s): I10 - Essential (primary) hypertension Plan: Pressure is mildly elevated today, have asked her to follow up the next time around with blood pressure log (4) Hypothyroidism: Code(s): E03.9 - Hypothyroidism, unspecified Plan: - Continued current dosing of levothyroxine. Plan During the visit, I discussed the patient's symptoms of tinnitus and associated hearing loss. I emphasized the importance of further diagnostic testing, including a detailed hearing test to determine the underlying cause. I explained the potential need for an ENT referral if initial test results are inconclusive. Regarding her hyperlipidemia, I outlined the benefits and possible side effects of starting atorvastatin, particularly the reduction of cardiovascular risk given her existing essential hypertension. We talked about the merits of using statins before her next annual blood work, favoring proactive management. The patient understands the plan and consents to the initiation of treatment with atorvastatin. We discussed her ongoing management of essential hypertension and hypothyroidism, with reassurances on the current treatment regimen. I counseled her to monitor her blood pressure at home and remain vigilant for any symptoms that might indicate changes in her condition. Orders: Referrals Audiology Referral E78.5 - Hyperlipidemia, unspecified, H93.12 - Tinnitus, left ear, I10 - Essential (primary) hypertension Medications: New atorvastatin (Lipitor) 20 mg PO BEDTIME 90 tabs 0RF E78.5 - Hyperlipidemia, unspecified Patient Instructions: - Take atorvastatin 20mg at night before bed as prescribed. - Monitor your blood pressure regularly and keep a log. - Attend an audiometry test for your hearing and follow up with results. - Maintain a healthy diet and stay hydrated. - Contact the office if tinnitus or other symptoms worsen. - Schedule regular follow-up visits for ongoing health management.
[2024-12-19 09:44] VITALS: BP 148/54; PULSE 67; RESP 16; TEMP 36.6; O2SAT 95; BMI 31.6
--- OUTSIDE RECORDS SUMMARY | 2024-12-19 11:23 | XMS_ITS | Patient Health Record ---
[facility] Address [address] [place] [address] Care Team Providers Care Cook Specialty Foreign Food Name Role Phone Dejan Petit MD Primary Care Provider Randell Palmer Unavailable [phone] Allergies Allergen (clinical drug ingredient) Drug/Non Drug [...] Status Risk Notes Problem Acquired hallux valgus (52154606) Hallux valgus (acquired), left foot (M20.12) Active confirmed Problem Localized, primary osteoarthritis of the ankle and/or foot (500403139) Primary osteoarthrit is, left ankle and foot (M19.072) Active confirmed Plan Of Treatment Pending Test Test Name Order Date X ray : Ankle, left 3V 11/04/202292257, J0702- INJECT or DRAIN, JOINT/BUR SA 11/04/2022 Insurance Providers Payer Name Payer Address Payer Phone Subscriber Number Group Number Insured Name Patient Relationship to Insured Coverage Start Date Coverage End Date [facility] [address] [place] [address] [phone] [id number] Polly Vidal Self - patient is [...]
--- OUTSIDE RECORDS SUMMARY | 2024-12-19 11:23 | XMS_ITS | Patient Health Record ---
Author Organization [facility] Address [address] [place] [address] Care Team Providers Care Nut Blanker Operator Name Role Phone Raúl Balderas Primary Care Provider Zak Meyers Jr Unavailable [phone] Reason For Referral No Information Plan Of Treatment No Information Insurance Providers Payer Name Payer Address Payer Phone Subscriber Number Group Number Insured Name Patient Relationship to Insured Coverage Start Date Coverage End Date [facility] [address] [place] [phone] [id number] RENATO BUSH Self - patient is the insured
== END 2024-12-19 11:12 | disposition home or self-care (01) ==
LOC: HO.HMCHD 09:42
PROVIDERS: PCP Student in an Organized Health Care Education/Training Program; Visit Provider Student in an Organized Health Care Education/Training Program
DX: E78.5 Hyperlipidemia, unspecified (principal); H93.12 Tinnitus, left ear; I10 Essential (primary) hypertension; E03.9 Hypothyroidism, unspecified

== ENCOUNTER 2025-01-27 04:56 | Emergency (ER) | payer OTHER, SELFPAY ==
--- NOTE | 2025-01-27 | ECG_ITS ---
Test Reason : DIZZINESS Blood Pressure : */* mmHG Vent. Rate : 73 BPM Atrial Rate : 73 BPM P-R Int : 144 ms QRS Dur : 78 ms QT Int : 400 ms P-R-T Axes : 30 -15 8 degrees QTcB Int : 440 ms Normal sinus rhythm Inferior infarct , age undetermined Abnormal ECG No previous ECGs available Referred By: Generic ED Physician Electronically Signed By: Dale Sheridan
--- NOTE | ~2025-01-27 | MR_ITS ---
CLINICAL HISTORY: Dizziness, R cerebellar stroke MR Brain without gadolinium Comparison: CT/SR - CT ANGIO HEAD NECK - 01/27/25 06:[address] - CT ANGIO HEAD NECK - 01/27/25 06:33 EDT Findings: No restricted diffusion. No intra-axial mass or hemorrhage. No midline shift. No hydrocephalus. Vascular flow voids are intact. A right frontoparietal venous angiomas incidentally noted. Orbital contents are unremarkable. The sinuses and mastoid air cells are clear. No focal bone lesion. IMPRESSION: No acute findings. This document has been electronically signed by: Ivet Cheng MD on 01/27/2025 14:41:37
--- NOTE | ~2025-01-27 | CT_ITS ---
CLINICAL HISTORY: Dizziness CT head without contrast. CT angiography head and neck with contrast. 3D Postprocessing. Comparison: None provided Findings: CT head: Mild bilateral periventricular hypodensities are present. There is no evidence of hemorrhage, mass, mass effect, or hydrocephalus. The orbital contents are unremarkable. There is opacification of the left mid ethmoid air cell. No acute fracture is identified. CTA head and neck: Mild calcific plaques are seen in the aortic arch. Bilateral common carotid arteries and carotid bifurcations are widely patent. Examination of the intracranial vasculature is limited due to venous contamination. Calcific plaques are seen in bilateral cavernous and supraclinoid ICAs without significant stenosis. Intracranially, bilateral ICA bifurcations are normal with patent bilateral anterior and middle cerebral arteries. No large vessel occlusion or significant stenosis is identified. Bilateral vertebral arteries are patent. There is mild luminal irregularity of the distal V2 segment of the left vertebral artery without significant stenosis (axial images 505-510 of series 10). Vertebrobasilar junction is normal with patent basilar artery. There is significant focal stenosis of the left superior cerebellar artery (axial image 327 of series 10). The right superior cerebellar and bilateral posterior cerebral arteries are unremarkable. No aneurysms are seen in the anterior or posterior circulation. Bilateral palatine tonsillar calcifications are present. Subcentimeter bilateral intraparotid lymph nodes are noted. The thyroid gland appears normal. There is no adenopathy. Mosaic attenuation is seen in the lung apices. No acute osseous abnormality is identified. IMPRESSION: 1. 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 2. Mild luminal irregularity of the distal V2 segment of the left vertebral artery without significant stenosis. 3. Mild chronic microvascular ischemic disease. No acute intracranial abnormality is identified. This document has been electronically signed by: Alessandra Segura on 01/27/2025 08:55:18
[2025-01-27 05:01] VITALS: BP 161/76; PULSE 79; RESP 20; TEMP 37; O2SAT 99; BMI 23.3
[2025-01-27 05:24] VITALS: BP 159/81; PULSE 78; RESP 12; TEMP 36.6; O2SAT 97
--- OUTSIDE RECORDS SUMMARY | 2025-01-27 05:46 | XMS_ITS | Patient Health Record ---
[facility] Address [address] [place] [address] Care Team Providers Care Correctional Security Officer Name Role Phone Dejan Petit MD Primary Care Provider Randell Almanza Unavailable [phone] Allergies Allergen (clinical drug ingredient) Drug/Non Drug [...] Status Risk Notes Problem Acquired hallux valgus (62415211) Hallux valgus (acquired), left foot (M20.12) Active confirmed Problem Localized, primary osteoarthritis of the ankle and/or foot (088562986) Primary osteoarthrit is, left ankle and foot (M19.072) Active confirmed Plan Of Treatment Pending Test Test Name Order Date X ray : Ankle, left 3V 11/04/2022 76658, J0702- INJECT or DRAIN, JOINT/BUR SA 11/04/2022 Insurance Providers Payer Name Payer Address Payer Phone Subscriber Number Group Number Insured Name Patient Relationship to Insured Coverage Start Date Coverage End Date [facility] [address] [place] [address] [id number] Polly Vidal Self - patient is [...]
--- OUTSIDE RECORDS SUMMARY | 2025-01-27 05:46 | XMS_ITS | Patient Health Record ---
Author Organization [facility] Address [address] [place] [address] Care Team Providers Care Journeyman Power Plant Operator Name Role Phone Raúl Balderas Primary Care Provider Zak Meyers Jr Unavailable Reason For Referral No Information Plan Of Treatment No Information Insurance Providers Payer Name Payer Address Payer Phone Subscriber Number Group Number Insured Name Patient Relationship to Insured Coverage Start Date Coverage End Date [facility] [address] [place] [address] [id number] RENATO BUSH Self - patient is the insured
--- OUTSIDE RECORDS SUMMARY | 2025-01-27 05:46 | XMS_ITS | Data Portability ---
Author Organization [facility] Telehealth Patient Home Address [address] [place] [address] Assessment No assessment recorded. Plan of Treatment Reminders Order Date Submit Date Provider Last Modified By Organization Details Last Modified Time Details Appointments None recorded. Lab CMP, serum or plasma 2018 019 JEFF Not available 9 08:37:02 lipid panel, blood 2018 019 JEFF Not available 9 08:37:02 CBC 2018 019 JEFF Not available 9 08:37:02 TSH + free T4, serum 2018 019 JEFF Not available 9 08:37:02 Referral colonoscopy referral 2018 019 denisha Virgen Jr, MD, [address] [place] [address] [place], [address], 9 09:45:47 Procedures None recorded. Surgeries None recorded. Imaging None recorded. Medication Orders None recorded. Patient TargetsNo targets recorded. Patient Instructions Encounter Date Encounter Id Patient Instructions Last Modified By Organization Details Last Modified Time 2018 [id number] Work on weight loss antonella Not available [...] Address Organization Details Recorded Time Hypertensive disorder 06114400 Active 2018 [facility] 9 08:03:20 Hypothyroidism 72893794 Active 2018 [facility] 9 08:03:31 Hypercholestero lemia 50282904 Active 2018 [facility] 9 08:03:40 Problem Notes None recorded. Procedures Surgical History Date Name Laterality Status Provider Name and Address Organization Details Recorded Time 6 Colonoscopy completed [facility] 06/27/2018 08:05:39 arthroscopy of knee completed [facility] 06/27/2018 08:09:04 Imaging Results None recorded. Procedure Notes None recorded. Medical Equipment None Reported. Allergies Allergen ID Allergen Name Allergen Category Reaction Reaction Severity Criticality Documentation Date Start Date Code Code System Note Provider Name and Address Organization Details Recorded Time 2913 Product containin g penicilli n (product) medicatio n Not available Not available Not available 06/27/2018 39058 8001 [facility] 08:05:57 Medications Name Sig Start Date [...] Available No t Available Vitals Date Recorded Systolic And Diastolic Provider Name and Address Organization Details Last Updated DateTime 2018 132/80 mm[Hg] Nicole Zepeda NP, [address] [facility], [place], [address], [facility] 2018 15:23:50 Date Recorded Body height Body mass index (BMI) Body weight Heart rate Oxygen saturation Oxygen saturation in Arterial blood by Pulse oximetry Systolic And Diastolic Provider Name and Address Organization Details Last Updated DateTime 9 137.16 cm 33.8 kg/m2 21418.0 1 g 88 /min 96 % 96 % 140/84 mm[Hg] Rosalinda Lew [facility] 9 15:01:01 Social History Question Answer Notes LastModified by Organizat ion Details LastModified Time Tobacco Smoking Status Never Smoker Rosalinda Lew zuleika [facility] 06/27/2018 08:08:43 What Was The Date Of [...] Diagnosis SNOMED-CT Code Diagnosis ICD10 Code Diagnosis IMO Codes Diagnosis Note 58091 Raúl Balderas DO [facility] [address] [facility],[place] [address] 2018 14:41:37 2018 15:56:03 Hypercholesterolemia 13458741 E78.00 Hypertensive disorder 38 114851 I10 Hypothyroidism 23209983 E03.9 Screening procedure 2012 5006 Z13.9 Health Concerns Section Related Observation LastModified by Organization Detai ls LastModified Time None Recorded Concern Status LastModified by Organization Details LastModified Time None Recorded Advance Directives Directive None Recorded Payers Insurance Date Sequence Insurance Name Policy Number Policy Burt Covered Member ID Burt Member ID Guarantor Name 10/04/2018 2 [place] [employer] Polly Duarte Zionmilagros [id number] Polly Duarte Lauryn 09/16/2018 1 [facility] [id number] Polly Duarte Zionsherimario [id number] Polly Duarte Ziontanomahi Notes Date Note Type Note Provider Name a nd Address Organization Details Recorded Time 2018 text/html Routine new pt appt known to this provider from previous office 3 years ago hurt back at work-lots P.T., 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 Eats at home, limited take out Nicole Zepeda NP, [address] [facility], [place], [address], [facility] 2018 15:45:11 OBGyn Episode No OBEpisode recorded.
[2025-01-27 06:00] VITALS: BP 143/64; PULSE 63; RESP 14; TEMP 36.6; O2SAT 98
[2025-01-27 06:08] LABS: MANUAL DIFF FLAG NO
[2025-01-27 06:09] LABS: Hematocrit 40.6 % (37.0-47.0); Hemoglobin 13.6 g/dl (12.0-16.0); Imm Gran Abs Auto 0.05 X10*3/uL (0.00-0.03); Imm Gran Pct Auto 0.5 % (0.0-0.4); Lymphocytes Absolute Auto 1.1 X10*3/uL (1.2-4.9); Mean Corpuscular HGB Conc 33.5 g/dl (31.0-35.0); Mean Corpuscular Hemoglobin 29.8 pg (27.0-33.0); Mean Corpuscular Volume 89.0 fL (80.0-98.0); NRBC Abs Auto 0.000 X10*3/uL (0.0-0.012); NRBC Pct Auto 0.0 /100WBC (0.0-0.2); Platelet Count 235 X10*3/uL (160-400); Red Blood Count 4.56 X10*6/uL (4.20-5.50); White Blood Count 9.3 X10*3/uL (4.8-10.8)
[2025-01-27 06:21] LABS: Alanine Aminotransferase 30 U/L (0-31); Albumin Level 4.4 g/dL (3.5-5.0); Alkaline Phosphatase 88 U/L (39-117); Anion Gap 12 (12-20); Aspartate Amino Transferase 25 U/L (5-31); Blood Urea Nitrogen 18 mg/dL (9-16); Calcium 9.2 mg/dL (8.4-10.2); Carbon Dioxide 25 mmol/L (22-29); Chloride 106 mmol/L (96-108); Creatinine Clr Calc Pharmacy 52.1; Estimated Glomerular Filt Rate > 60; Potassium 4.0 mmol/L (3.3-5.1); Sodium 139 mmol/L (135-145); Total Protein 7.2 g/dL (6.5-8.0)
--- NOTE | 2025-01-27 06:38 | ED_ITS ---
HPI - Dizziness General Chief Complaint: Dizziness Stated Complaint: Ear Pain Time Seen by Provider: 01/27/25 06:22 Source: patient Mode of arrival: ambulatory Limitations: no limitations History of Present Illness ED Provider: DR. Chapman HPI Narrative: A 69-year-old female came in for evaluation of feeling dizzy (room spinning) since she woke up from sleep at 03:00, patient has a history of chronic left ear tinnitus and pain after had a history of shingle involving her left side of the face 2 years ago. Patient is in the process of getting into ENT evaluation for the chronic tinnitus of the left ear via her PCP returned today to the ED for new vertigo and and dizziness symptoms is associated with nausea and vomiting, otherwise declined weakness or numbness, no headache, no neck pain. Related Data Home Medications ?Medication ?Instructions ?Recorded ?Confirmed levothyroxine 88 mcg tablet 88 mcg PO DAILY 07/24/24 metoprolol succinate 50 mg 50 mg PO DAILY 07/24/24 tablet,extended release 24 hr Previous Rx's ?Medication ?Instructions ?Recorded lisinopril 10 mg tablet 10 mg PO DAILY #90 tabs 08/04 atorvastatin 20 mg tablet (Lipitor) 20 mg PO BEDTIME # 90 tabs 12/19/24 meclizine 25 mg tablet 25 mg PO QID PRN motion sick ness 01/27/25 #30 tabs Allergies Allergy/AdvReac Type Severity Reaction Status Date / Time Penicillins Allergy Unknown Unknown Verified 01/27/25 05:05 Review of Systems 2 Review of Systems: All other systems are reviewed and are negative Constitutional: Reports as per HPI and Reports no additional constitutional complaints Eyes: Reports as per HPI and Reports no additional eye complaints Reports system reviewed and no additional complaints, except as documented Cardiovascular: Reports as per HPI and Reports no additional cardiovascular complaints Respiratory: Reports as per HPI and Reports no additional respiratory complaints Gastrointestinal: Reports as per HPI and Reports no additional gastrointestinal complaints Genitourinary: Reports no additional female genitourinary complaints Musculoskeletal: Reports no additional musculoskeletal complaints Skin/Breast: Reports system reviewed and no additional complaints, except as docu Psychiatric: Reports no additional psychiatric complaints Endocrine: Reports no additional endocrine complaints Hematologic/Lymphatic: Reports no additional hematologic/lymphatic complaints Allergic/Immunologic: Reports no additional allergic/immunologic complaints Reports system reviewed and no additional complaints, except as documented and Reports Abnormal speech present [facility] Past Medical History Medical History Left-sided tinnitus Hyperlipidemia GERD (gastroesophageal reflux disease) Family History Family History Mother No problems noted. Father No problems noted. Social History Social History Housing: House Alcohol intake: never Patient Tobacco Use Status: Never used Tobacco Smoked in Last 30 Days: No e-Cigarette/Vaping Use: Never Used Use of substances other than those prescribed or required for medical reasons: No Advance Directives: No Advance Directives Information Provided: Yes service: No Current occupational status: employed Cognitive needs: No Hearing needs: No Vision needs: Yes (rx glasses) Physical Exam 2 Vital Signs: Vital Signs: Last Vital Signs Temp 98.5 F 01/27/25 11:32 Pulse 63 01/27/25 11:32 Resp 13 01/27/25 11:32 BP 134/62 01/27/25 11:32 Pulse Ox 96 01/27/25 11:32 O2 Del Method Room Air 01/27/25 11:32 BMI result Body Mass Index 23.3 Vital signs have been reviewed and appear to be correct. Blood pressure elevated. Heart rate normal. Respiratory rate normal. Temperature normal. Oxygen saturation normal. Appearance: Alert. Oriented X3. No acute distress. Head: Normal external exam. Normocephalic. Atraumatic. No Gutiérrez signs noted. No raccoon eyes noted Eyes: PERRLA. EOMI. Conjunctiva and sclera normal. Eyelids normal. ENT: TM's Normal. Pharynx normal. Uvula midline. Moist mucous membranes. No trismus noted. No drooling noted. No muffled voice noted. Neck: Normal inspection. Neck supple. FROM. No adenopathy. Thyroid Normal. No meningeal signs. No neck mass noted. CVS: Normal heart rate and rhythm. Heart sound normal. No murmurs noted. Pulses normal throughout. Respiratory: No respiratory distress. Painless inspiration. Breath sounds normal. No wheezes/rales/rhonchi noted. Chest nontender. No accessory muscle usage noted or decreased air movement noted. Abdomen: Soft and nontender. Bowel sounds normal in all 4 quadrants. No distention noted. No organomegaly noted. No visible injury noted. Back: No CVA tenderness. Full range of motion noted. Skin: Skin warm and dry. Normal skin color. Normal skin turgor. No rashes/lesions/lacerations noted. Extremities: No lower extremity edema. Extremities exhibit normal range of motion. Extremities nontender. Neuro: Mental status: Normal attention, orientation, memory, and affect. Cranial nerves: Pupils are equal, round and reactive to light, EOMI, visual moraes are fall, face is symmetric, facial sensations are normal. Motor examination normal muscle tone, strength to 4 extremities. DTR are +2, planter's are flexor. Sensory exam; normal coordination, no ataxia, gait stable. Cerebellar exam: [id number] and [id number]-gf-[id number] is normal. Extrapyramidal system: No tremors, no rigidity with normal facial expressions. Pronator drift not present NIH Stroke Scale Internal: Initial- Upon Arrival Level of Consciousness: Alert Level of Consciousness Questions: Answers both questions correctly Level of Consciousness Commands: Performs both tasks correctly Best Gaze: Normal Visual: No visual loss Facial Palsy: Normal Motor Arm (Right): No drift Motor Arm (Left): No drift Motor Leg (Right): No drift Motor Leg (Left): No drift Limb Ataxia: Absent Sensory: Normal Best Language: No aphasia Dysarthia: Normal Extinction and Inattention: No abnormality Score: 0 Course Reevaluation(s) Reevaluation #1: A 69-year-old female came in for evaluation of peripheral vertigo secondary to left ear pain. Patient in the process to see an ENT doctor via her PCP. Otherwise normal neuro exam in particular cerebellar exam, improvement after meclizine in the ED. 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 MRI reveals no acute strokes. Patient now is able to walk steadily with no vertigo or any other symptoms will discharge to follow-up with PCP/ENT. Patient to follow-up with Dr. Thurston for further evaluation. Time: 15:11 Medications Administered Discontinued Medications Generic Name Dose Route Start Last Admin Trade Name Freq PRN Reason Stop Dose Admin Diazepam 2 mg 01/27/25 06:38 01/27/25 07:21 Diazepam 2 Mg Tablet PO 01/27/25 06:39 2 mg ONCE ONE Administration Iohexol 100 ml 01/27/25 06:50 01/27/25 07:02 Iohexol 350 Mg/Ml 100 Ml Infus..Btl IV 01/27/25 06:51 75 ml ONCE ONE Administration Meclizine HCl 50 mg 01/27/25 06:38 01/27/25 07:21 Meclizine Hcl 25 Mg Tablet PO 01/27/25 06:39 50 mg ONCE ONE Administration Ondansetron HCl 4 mg 01/27/25 06:38 01/27/25 07:21 Ondansetron Hcl 4 Mg/2 Ml Vial IVPUSH 01/27/25 06:39 4 mg ONCE ONE Administration Medical Decision Making Differential Diagnosis Differential Diagnoses: The differential diagnosis associated with the presentation includes (Cerebellar stroke, peripheral vertigo, electrolyte derangement, severe anemia, left ear pathology, dehydration.) Admission/Observation Consideration of admission/observation: Escalation of care including admission/observation considered Lab Data MDM Lab Attestation statement: I reviewed the patient's lab results. 01/27/25 05:45 01/27/25 05:45 Labs: Lab Results 01/27/25 Range/Units 05:45 WBC 9.3 (4.8-10.8) X10*3/uL RBC 4.56 (4.20-5.50) X10*6/uL Hgb 13.6 (12.0-16.0) g/dl Hct 40.6 (37.0-47.0) % MCV 89.0 (80.0-98.0) fL MCH 29.8 (27.0-33.0) pg MCHC 33.5 (31.0-35.0) g/dl RDW 12.6 (11.0-16.0) % Plt Count 235 (160-400) X10*3/uL MPV 10.5 (9.4-12.3) fL Immature Gran % (Auto) 0.5 H (0.0-0.4) % Neut % (Auto) 79.6 H (45-73) % Lymph % (Auto) 12.0 L (20-40) % [place] % (Auto) 5.4 (2-11) % Eos % (Auto) 2.1 (0-4) % Baso % (Auto) 0.4 (0-2) % Lymph # (Auto) 1.1 L (1.2-4.9) X10*3/uL [place] # (Auto) 0.5 (0.1-1.2) X10*3/uL Eos # (Auto) 0.2 (0.0-0.4) X10*3/uL Baso # (Auto) 0.0 (0.0-0.2) X10*3/uL Abs Immat Gran (auto) 0.05 H (0.00-0.03) X10*3/uL Absolute Neuts (auto) 7.4 (2.0-8.3) x10*3/uL Absolute Nucleated RBC 0.000 (0.0-0.012) X10*3/uL Nucleated RBC % (auto) 0.0 (0.0-0.2) /100WBC Sodium 139 (135-145) mmol/L Potassium 4.0 (3.3-5.1) mmol/L Chloride 106 (96-108) mmol/L Carbon Dioxide 25 (22-29) mmol/L Anion Gap 12 (12-20) BUN 18 H (9-16) mg/dL Creatinine 0.89 (0.5-1.4) mg/dL Estim Creat Clear Calc 52.1 Estimated GFR > 60 Random Glucose 159 H (60-115) mg/dL Calcium 9.2 (8.4-10.2) mg/dL Total Bilirubin 0.3 (0.0-1.0) mg/dL AST 25 (5-31) U/L ALT 30 (0-31) U/L Alkaline Phosphatase 88 (39-117) U/L Total Protein 7.2 (6.5-8.0) g/dL Albumin 4.4 (3.5-5.0) g/dL Independent Interpretation I performed an independent interpretation of an: CT Scan (Head; CT angio head and neck:1. 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 2. Mild luminal irregularity of the distal V2 segment of the left vertebral artery without significant stenosis. 3. Mild chronic microvascular ischemic disease. No acute intracranial abnormality is i) and MRI (Brain: No acute findings) Radiology Impression Discussion of test interpretation with radiology: I have reviewed the radiologist's reading. Discharge Plan Discharge Clinical Impression: Episodic peripheral vertigo Patient Disposition: Home, Self-Care Instructions: Vertigo (ED) Prescriptions: New meclizine 25 mg tablet 25 mg PO QID PRN (Reason: motion sickness) Qty: 30 0RF No Action lisinopril 10 mg tablet 10 mg PO DAILY Qty: 90 1RF metoprolol succinate 50 mg tablet extended release 24 hr 50 mg PO DAILY levothyroxine 88 mcg tablet 88 mcg PO DAILY atorvastatin [Lipitor] 20 mg tablet 20 mg PO BEDTIME Qty: 90 0RF Referrals: Israel Rosario MD [Primary Care Provider, Internal Medicine] Francy Thurston MD [Physician, Neurology] Stand Alone Forms: Work/School Release Print Language: Honduran
[2025-01-27] MEDS: iohexoL 350 MG/ML 100 ML INFUS..BTL IV (07:02)
[2025-01-27 11:32] VITALS: BP 134/62; PULSE 63; RESP 13; TEMP 36.9; O2SAT 96
--- NOTE | 2025-01-27 12:02 | PC.NURSE ---
Pt off unit at MRI at this time
[2025-01-27 15:30] VITALS: BP 134/62; PULSE 63; RESP 13; TEMP 36.9; O2SAT 96
== END 2025-01-27 15:31 | disposition home or self-care (01) ==
PROVIDERS: Emergency Provider Emergency Medicine; PCP Student in an Organized Health Care Education/Training Program
DX: H81.392 Other peripheral vertigo, left ear (principal); H93.12 Tinnitus, left ear; H92.02 Otalgia, left ear
CPT/HCPCS: 36415; 70496; 70498; 70551; 80053; 85025; 93005; 96374; 99284; 99285; J2405; Q9967

== ENCOUNTER → 2025-01-27 06:15 | Outpatient (BNV) | payer OTHER, SELFPAY | PROVIDERS: Emergency Provider Emergency Medicine; PCP Student in an Organized Health Care Education/Training Program; Visit Provider Internal Medicine Cardiovascular Disease | DX: R94.31 Abnormal electrocardiogram [ECG] [EKG] (principal); R42 Dizziness and giddiness | CPT/HCPCS: 93010 ==

== ENCOUNTER → 2025-01-27 06:33 | Outpatient (BNV) | payer OTHER, SELFPAY | PROVIDERS: Emergency Provider Emergency Medicine; PCP Student in an Organized Health Care Education/Training Program; Visit Provider Radiology Vascular & Interventional Radiology | DX: I66.3 Occlusion and stenosis of cerebellar arteries (principal); I67.82 Cerebral ischemia; H81.12 Benign paroxysmal vertigo, left ear | CPT/HCPCS: 70496; 70498; 70551 ==

== ENCOUNTER 2025-03-15 10:19 | Outpatient (REF) | payer OTHER, SELFPAY ==
--- OUTSIDE RECORDS SUMMARY | 2025-03-15 12:29 | XMS_ITS | Patient Health Record ---
Author Organization [facility] Address [address] [place] [address] Care Team Providers Care Tobacco Drier Operator Name Role Phone Raúl Balderas Primary Care Provider Zak Meyers Jr Unavailable Reason For Referral No Information Plan Of Treatment No Information Insurance Providers Payer Name Payer Address Payer Phone Subscriber Number Group Number Insured Name Patient Relationship to Insured Coverage Start Date Coverage End Date [facility] [place] [address] [place] [phone] [id number] RENATO BUSH Self - patient is the insured
--- OUTSIDE RECORDS SUMMARY | 2025-03-15 12:30 | XMS_ITS | Patient Health Record ---
[facility] Address [address] [place] [address] Care Team Providers Care Hse Manager Name Role Phone Dejan Petit MD Primary Care Provider Randell Almanza Unavailable [phone] Allergies Allergen (clinical drug ingredient) Drug/Non Drug [...] Status Risk Notes Problem Acquired hallux valgus (75464254) Hallux valgus (acquired), left foot (M20.12) Active confirmed Problem Localized, primary osteoarthritis of the ankle and/or foot (490037435) Primary osteoarthrit is, left ankle and foot (M19.072) Active confirmed Plan Of Treatment Pending Test Test Name Order Date X ray : Ankle, left 3V 11/04/2022 [id number], [id number] INJECT or DRAIN, JOINT/BUR SA 11/04/2022 Insurance Providers Payer Name Payer Address Payer Phone Subscriber Number Group Number Insured Name Patient Relationship to Insured Coverage Start Date Coverage End Date [facility] [address] [place] [address] [phone] [id number] Polly Vidal Self - patient is [...]
== END 2025-03-15 10:20 | disposition home or self-care (01) ==
LOC: HO.SH 10:19
PROVIDERS: Visit Provider Student in an Organized Health Care Education/Training Program
DX: H93.12 Tinnitus, left ear (principal); I10 Essential (primary) hypertension; E78.5 Hyperlipidemia, unspecified; H90.3 Sensorineural hearing loss, bilateral
CPT/HCPCS: 92550; 92557